=== PATIENT | female | born 1955 | race African-American/Black ===

== ENCOUNTER 2018-12-01 20:11 | Emergency (ER) | payer MEDICAID ==
[~2018-12-01] VITALS: Ht 170.2 cm; Wt 67.1 kg
--- NOTE | 2018-12-01 20:30 | NUR ---
ED Nurse Note: evaristo was LORY from [facility] due to SI. Stated that do not have any plans for that, she just do not want to live in that facility. AAO x4, VSS at this time, skin is dry warm to touch. Patient was undressed, placed in the gown.
--- NOTE | 2018-12-01 20:35 | NUR ---
ED Nurse Note: All belongings were placed in locker # 2.
[2018-12-01] MEDS ORDERED: LAMICTAL150 MG ORAL (20:38)
[2018-12-01] MEDS ORDERED: BISACODYL5 MG ORAL (20:38)
[2018-12-01] MEDS ORDERED: GABAPENTIN100 MG ORAL (20:38)
[2018-12-01] MEDS ORDERED: POTASSIUM CHLO20 ME2 ORAL (20:38)
[2018-12-01] MEDS ORDERED: ZYPREXA5 MG ORAL (20:38)
[2018-12-01] MEDS ORDERED: IMITREX50 MG ORAL (20:38)
[2018-12-01] MEDS ORDERED: LISINOPRIL20 MG ORAL (20:38)
[2018-12-01] MEDS ORDERED: FUROSEMIDE20 M1 ORAL (20:38)
[2018-12-01] MEDS ORDERED: METOPROLOL TART25 MG ORAL (20:38)
[2018-12-01] MEDS ORDERED: RISPERDAL0.5 MG ORAL (20:38)
[2018-12-01] MEDS ORDERED: PERCOCET 10-321 EACH ORAL (20:38)
[2018-12-01] MEDS ORDERED: PANTOPRAZOLE SO40 MG ORAL (20:38)
[2018-12-01 20:42] VITALS: BP 156/74
--- NOTE | 2018-12-01 20:45 | Emergency Room Report ---
History of Present Illness General Chief Complaint: General Complaint Source: EMS Present Illness HPI HPI: 63-year-old female with history of depression, schizoaffective disorder ( documented), hypertension and anxiety, GERD presents for evaluation of suicidal ideation. Patient states he has been residing at the [facility] for several years after some bowel altering surgery. She presents by ambulance today from the [facility] after she reported suicidality to staff. She does not have a definitive plan and states that she currently does not feel suicidal. She was feeling very depressed and states that she has plan for discharge from the [facility] and has no place to go. She considered moving with her son to [place] however she "feels it is too late." She has denying any attempts at self-harm, ingestion either now or prior. She has been feeling increased depression over the past few months including changes in sleep patterns, decreased appetite, fatigue/lethargy, subjective weight loss. She does not believe she has a formal diagnosis of depression but she does state that she has anxiety which she takes Ativan. Documentation from [facility] shows a diagnosis of schizo affective disorder and bipolar disorder. She has been refusing her medications over the past few days according to EMS. She is requesting to speak with a psychiatrist but again states that she is not actively suicidal, has no plan and has never attempted self-harm. Patient is otherwise in her usual state of health and denies any headache, vision changes, throat pain, difficulty swallowing, chest pain, shortness of breath, cough, abdominal pain, nausea, vomiting, diarrhea, fevers, rash or any other change in her health. PMH: Schizoaffective disorder (documented) and, depression, anxiety, GERD, hypertension PSH: U laparoscopy, bowel resection Allergies: Allergy to codeine Social Hx: Denies alcohol, tobacco or drug use Allergies: Coded Allergies: CODEINE (Verified Allergy, Unknown, 12/01/18) IBUPROFEN (Verified Allergy, Unknown, 12/01/18) Patient History Now: No Nursing Documentation-PMH Past Medical History: No History, Except For Hx Hypertension: Yes History Of Psychiatric Problem: Yes - depression, schizo-effective, anxiety, bipolar Review of Systems All Other Systems: negative except mentioned in HPI Physical Exam Vital Signs Date Time Temp Pulse Resp B/P (MAP) Pulse Ox O2 Delivery O2 Flow Rate FiO2 12/01/18 20:05 97.9 60 16 156/74 (101) 100 Room Air General: Awake and alert, no acute distress HEENT: NC/AT. EOMI. PERRLA. Moist mucous membranes Neck: Supple, trachea midline Chest Wall: No tenderness, no deformity Cardiovascular: RRR. S1 and S2 normal. No murmur appreciated Resp: Normal work of breathing. No cough, wheezing or crackles appreciated Abdomen: Abdomen is soft, nondistended. Nontender Skin: Intact. No abrasions, laceration or rash over the exposed skin MSK: Normal tone and bulk. Moving all extremities. No obvious deformity. Neuro: Awake and alert. Mentating appropriately. Cooperative with exam. Oriented to self, place, situation. Medical Decision Making Diagnostic Impression: Primary Impression: Suicidal ideation Additional Impression: Anorexia ER Course 63-year-old female with history of anxiety, bipolar disorder, schizoaffective disorder presents for evaluation of suicidal ideation, depression, requesting to speak with a psychiatrist as well as changes in sleep pattern, weight loss, decreased appetite. She adamantly denies any current plan or thoughts of suicide but does admit to having suicidal thoughts over the past few days as well as worsening depression for a longer period of time. Again, she denies self-harm today or in the past. We will check basic labs and discuss with PMD regarding admission. Unfortunately, we cannot provide a psychiatrist at this time of night. Should either be admitted or held in the emergency department to the morning for psychiatric evaluation. Reevaluation Time: 21:57 Last Vital Signs Date Time Temp Pulse Resp B/P (MAP) Pulse Ox O2 Delivery O2 Flow Rate FiO2 12/01/18 20:05 97.9 60 16 156/74 (101) 100 Room Air Reevaluation Impression Discussed with the patient's PMD who is recommending admission. Will admit to the floor and order routine blood work. She is in no acute distress, comfortable, calm and cooperative at this time. Patient is awaiting lab results after which we will discuss with [facility]. They are considering transferring to 1 of their facility or sending a psychiatrist to evaluate the patient. Signed out to Dr. Doyle at 2308 in stable condition Please note that this report is being documented using [employer] technology. This can lead to erroneous entry secondary to incorrect interpretation by the dictating instrument. Admit Decision Time: 21:58 Condition: Stable Signed Out To: Mario Sanders MD Dec 01, 2018 20:45
[2018-12-01 22:50] VITALS: BP 150/75
[2018-12-01] MEDS ORDERED: LORazepam Inj 2mg/ml 1ml IV PRN (23:00)
[2018-12-01] MEDS ORDERED: Zolpidem 5mg tab ORAL PRN (23:00)
[2018-12-01] MEDS ORDERED: Miralax 17gm pkt ORAL PRN (23:00)
[2018-12-01 23:13] LABS: HEMATOCRIT 36.5 % (37.0-47.0); HEMOGLOBIN 11.9 G/DL (12.0-16.0); MEAN CORPUSCULAR VOLUME 95 FL (80-99); PLATELET COUNT 262 K/UL (150-450); RED BLOOD COUNT 3.85 M/UL (4.20-5.40); RED CELL DISTRIBUTION WIDTH 12.8 % (11.6-14.8)
[2018-12-01 23:19] LABS: ANION GAP 5 mmol/L (5-15); BLOOD UREA NITROGEN 20 mg/dL (7-18); CALCIUM 9.8 MG/DL (8.5-10.1); CARBON DIOXIDE 29 MMOL/L (21-32); CHLORIDE 105 MMOL/L (98-107); CREATININE 0.9 MG/DL (0.55-1.30); POTASSIUM 4.4 MMOL/L (3.5-5.1); SODIUM 139 MMOL/L (136-145)
[2018-12-01 23:24] LABS: ALANINE AMINOTRANSFERASE 8 U/L (12-78); ALBUMIN 4.1 G/DL (3.4-5.0); ALKALINE PHOSPHATASE 41 U/L (46-116); ASPARTATE AMINO TRANSFERASE 23 U/L (15-37); BILIRUBIN,TOTAL 0.5 MG/DL (0.2-1.0)
[2018-12-02 00:50] VITALS: BP 155/74
--- NOTE | 2018-12-02 03:00 | NUR ---
ED Nurse Note: Pt asleep when visited, VSS.
[2018-12-02 03:02] VITALS: BP 144/72
[2018-12-02] MEDS ORDERED: LORazepam 1mg tab ORAL ONE (03:45)
--- NOTE | 2018-12-02 03:56 | NUR ---
ED Nurse Note: Patient is in the bed, cooperative, AAO x4, VSS at this time, no acute disstress noticed.
[2018-12-02 05:02] VITALS: BP 137/70
--- NOTE | 2018-12-02 05:05 | NUR ---
ED Nurse Note: Spoke with Margaret at [facility] - there are no plans/orders to discharge her from the ECF. Pt had earlier told us that she was going to be discharged, and has "no where to go". Margaret also states that Ms. Hart's bed will remain open for five days.
--- NOTE | 2018-12-02 07:19 | NUR ---
HAND-OFF: Report given to DOREEN Higgins.
--- NOTE | 2018-12-02 08:05 | NUR ---
ED Nurse Note: recieved pt on bed, pt stated that she had a suicidal thought but has no plan on hurting herself. pt was given breakfast and was able to tolerate. pt has no complaint, sitter on bedside. will continue to monitor.
[2018-12-02 08:08] VITALS: BP 130/70
[2018-12-02] MEDS ORDERED: Lisinopril 10mg tab ORAL ONE (08:15)
--- NOTE | 2018-12-02 08:21 | NUR ---
ED Nurse Note: pt was given routine medication ordered by accepting with approval from dr pastrana. pt able to tolerate well. will continue to monitor.
[2018-12-02] MEDS ORDERED: LaMICtal 150mg tab ORAL SCH (09:00)
[2018-12-02] MEDS ORDERED: Metoprolol 25mg tab ORAL SCH (09:00)
--- NOTE | 2018-12-02 09:04 | NUR ---
ED Nurse Note: pt asleep, with unlabored respiration. no complaint at the moment. sitter on bedside. will continue to monitor.
--- NOTE | 2018-12-02 09:06 | NUR ---
ED Nurse Note: previous rn gave number of pt son [phone] Vitor, attempted to call but to no avail.
--- NOTE | 2018-12-02 12:30 | NUR ---
ED Nurse Note: Dr. Mcclure at bedside and cleared patient at this time and ok to discharge patient back to SNF.
--- NOTE | 2018-12-02 12:54 | NUR ---
ED Nurse Note: RN spoke to Radha, charge nurse at [facility] and ok to take patient back at this time.
--- NOTE | 2018-12-02 13:10 | NUR ---
ED Nurse Note: dr armstrong on bedside talking with pt regarding the plan of care, pt denies si, denies plan. pt able to verbalize understanding.
[2018-12-02 13:34] VITALS: BP 118/76
--- NOTE | 2018-12-02 13:34 | NUR ---
ER DISCHARGE NOTE: pt is cleared for discharge by dr armstrong, pt is going back to facility and report given to alexy fowler., pt is aox4, on room air, with stable vital signs. pt was given dc and prescription instructions, pt was able to verbalize understanding, pt id band and iv site removed without complications. pt is able to ambulate with steady gait. pt took all belongings.
--- NOTE | 2018-12-03 00:15 | Consultation ---
DATE OF CONSULTATION: 12/02/2018 CONSULTING PHYSICIAN: Nayely Mcclure M.D. HISTORY OF PRESENT ILLNESS: This is a 63-year-old female, who is admitted to the hospital due to suicidal ideation. The patient presented with depressed mood, anhedonia, worthlessness, hopelessness. The patient is reluctant to take psychotropic medication. She stated that she recently lost her and her mother. She feels lonely than before. The patient was not suicidal in the ER. Stated that she feels better. PAST PSYCHIATRIC HISTORY: Depression, anxiety. PAST MEDICAL HISTORY: Hypertension, hyperlipidemia. MENTAL STATUS EXAMINATION: The patient is alert, oriented times self, place, and situation. Mood is depressed. Affect is constricted. Thought process is linear and goal oriented. Thought content, no suicidal or homicidal ideation. ASSESSMENT: [place] I Major depressive disorder, recurrent moderate. [place] I Deferred. [place] I As above. [place] I Low. [place] I 50. PLAN: 1. The patient will be resumed antidepressant. 2. Encourage her to take her psychotropic medications. 3. She will be referred to psychiatrist. Nayely Mcclure M.D. DR: FOREST JOB#: [id number] CC:
== END 2018-12-02 13:34 ==
LOC: EDBD 20:11 → EMR 21:17
DX: R45.851 Suicidal ideations (principal); R63.0 Anorexia; F25.9 Schizoaffective disorder, unspecified; F32.9 Major depressive disorder, single episode, unspecified; F41.9 Anxiety disorder, unspecified; Z88.6 Allergy status to analgesic agent; Z88.5 Allergy status to narcotic agent
CPT/HCPCS: 36415; 80053; 80307; 80329; 85007; 85025; 96360; 99285

== ENCOUNTER 2019-09-21 21:14 | Inpatient (IN) | payer MEDICAID ==
[~2019-09-21] VITALS: Ht 165.1 cm; Wt 72.6 kg
[~2019-09-21 21:14] MED LIST: BISACODYL5 MG ORAL; FUROSEMIDE20 M1 ORAL; GABAPENTIN100 MG ORAL; IMITREX50 MG ORAL; LAMICTAL150 MG ORAL; LISINOPRIL20 MG ORAL; METOPROLOL TART25 MG ORAL; PANTOPRAZOLE SO40 MG ORAL; PERCOCET 10-321 EACH ORAL; POTASSIUM CHLO20 ME2 ORAL; RISPERDAL0.5 MG ORAL; ZYPREXA5 MG ORAL
[2019-09-21] MEDS ORDERED: Acetaminophen 650 MG SUPP RECTAL ONE (21:45)
[2019-09-21] MEDS ORDERED: TRAMADOL HCL100 M2 ORAL (21:46)
[2019-09-21] MEDS ORDERED: MYLANTA30 M1 GT (21:46)
[2019-09-21] MEDS ORDERED: SENOKOT8.6 MG PO (21:46)
[2019-09-21] MEDS ORDERED: ZENPEP DR 5,001 EAC1 PO (21:46)
[2019-09-21] MEDS ORDERED: TEMAZEPAM22.5 MG PO (21:46)
[2019-09-21] MEDS ORDERED: CULTURELLE1 EAC1 PO (21:46)
[2019-09-21] MEDS ORDERED: DIPHENHYDRAMINE25 M1 ORAL (21:46)
[2019-09-21] MEDS ORDERED: FLOMAX0.4 MG ORAL (21:46)
[2019-09-21] MEDS ORDERED: LACTULOSE10 GM/154 PO (21:46)
[2019-09-21] MEDS ORDERED: RIFAXIMIN500 GM MC (21:46)
[2019-09-21] MEDS ORDERED: HYDROMORPHO IJ (21:46)
[2019-09-21] MEDS ORDERED: REGLAN10 MG ORAL (21:46)
[2019-09-21] MEDS ORDERED: ACETAMINOPHEN325 M1 ORAL (21:46)
[2019-09-21] MEDS ORDERED: CEPHALEXIN500 MG ORAL (21:46)
[2019-09-21] MEDS ORDERED: SPIRONOLACTONE1 GM MC (21:46)
[2019-09-21] MEDS ORDERED: ZOFRAN4 M1 ORAL (21:46)
--- NOTE | 2019-09-21 22:00 | Emergency Room Report ---
History of Present Illness General Chief Complaint: Fever Source: Patient, Medical Record (Chuckie Doyle MD) Present Illness HPI 64-year-old female presents for fever. Brought in by EMS from [facility] facility. Febrile at facility. Given Tylenol. Reported cough. Productive. States she feels shaky and weak. Denies chest pain or shortness of breath. No other aggravating relieving factors. No other associated symptoms (Chuckie Doyle MD) Allergies: Coded Allergies: CODEINE (Verified Allergy, Unknown, 12/01/18) IBUPROFEN (Verified Allergy, Unknown, 12/01/18) COVID-19 Screening Contact w/high risk pt: Yes Recent Travel to affected area: No Experienced COVID-19 symptoms?: Yes COVID-19 symptoms experienced: Fever (T>100.4F or >38C), Cough COVID-19 Testing performed SURVEY AND MAPPING TECHNICIAN: No (Chuckie Doyle MD) Patient History Past Medical History: HTN, psych hx Pertinent Family History: none Social History: Denies: smoking, alcohol use, drug use Last Menstrual Period: na Now: No Immunizations: UTD Reviewed Nursing Documentation: PMH: Agreed; PSxH: Agreed (Chuckie Doyle MD) Nursing Documentation-PMH Hx Hypertension: Yes Hx Gastrointestinal Problems: Yes - obstruction Hx Dialysis: No - Akf History Of Psychiatric Problem: Yes - modd disorder; paranoid schiz (Chuckie Doyle MD) Review of Systems All Other Systems: negative except mentioned in HPI (Chuckie Doyle MD) Physical Exam Vital Signs Date Time Temp Pulse Resp B/P (MAP) Pulse Ox O2 Delivery O2 Flow Rate FiO2 09/20/20 21:18 103.3 104 24 135/80 (98) 96 Room Air Sp02 EP Interpretation: reviewed, normal General Appearance: no apparent distress, alert, GCS 15, non-toxic Head: normocephalic, atraumatic Eyes: bilateral eye normal inspection, bilateral eye PERRL ENT: hearing grossly normal, normal pharynx, no angioedema, normal voice Neck: full range of motion, supple/symm/no masses Respiratory: chest non-tender, crackles, speaking full sentences Cardiovascular #1: regular rate, rhythm, no edema Cardiovascular #2: 2+ carotid (R), 2+ carotid (L), 2+ radial (R), 2+ radial (L) , 2+ dorsalis pedis (R), 2+ dorsalis pedis (L) Gastrointestinal: normal bowel sounds, non tender, soft, non-distended, no guarding, no rebound Rectal: deferred Genitourinary: normal inspection, no CVA tenderness Musculoskeletal: back normal, normal range of motion, gait/station normal, non- tender Neurologic: alert, motor strength/tone normal, oriented x3, sensory intact, responsive, speech normal Psychiatric: judgement/insight normal, memory normal, mood/affect normal, no suicidal/homicidal ideation Reflexes: 3+ bicep (R), 3+ bicep (L), 3+ tricep (R), 3+ tricep (L), 3+ knee (R) , 3+ knee (L) Skin: other - see nursing skin notes Lymphatic: no adenopathy (Chuckie Doyle MD) Medical Decision Making Diagnostic Impression: Primary Impression: RLL pneumonia Qualified Codes: J18.9 - Pneumonia, unspecified organism ER Course See above note. RLL infiltrate. Antibiotics started. 2229 Discussed with [facility] who request admission here. Discussed with Dr. Vicente who accepts admission. 2253 Labs remarkable for normal white count but left shift. Elevated C-reactive protein. D-dimer is minimally elevated however not to the point of concern for starting anticoagulation at this time. COVID-19 testing pending. As patient comes from a [facility] facility suspicion for COVID-19 is moderate to high. (Alfredo De La Fuente MD) EKG Diagnostic Results Rate: tachycardiac Rhythm: NSR ST Segments: no acute changes ASA given to the pt in ED: No (Chuckie Doyle MD) Rate: tachycardiac Rhythm: NSR ST Segments: no acute changes (Alfredo De La Fuente MD) Rhythm Strip Diag. Results EP Interpretation: yes Rhythm: NSR, no PVC's, no ectopy (Chuckie Doyle MD) EP Interpretation: yes Rhythm: no PVC's, no ectopy, other - ST (Alfredo De La Fuente MD) Chest X-Ray Diagnostic Results Chest X-Ray Diagnostic Results : Chest X-Ray Ordered: Yes # of Views/Limited/Complete: 1 View Indication: Shortness of Breath EP Interpretation: Yes Interpretation: no effusion, no pneumothorax, other - RLL infiltrate Impression: Other Electronically Signed by: Electronically signed by Alfredo De La Fuente MD (Alfredo De La Fuente MD) Last Vital Signs Date Time Temp Pulse Resp B/P (MAP) Pulse Ox O2 Delivery O2 Flow Rate FiO2 09/21/19 21:18 103.3 104 24 135/80 (98) 96 Room Air (Chuckie Doyle MD) Last Vital Signs Date Time Temp Pulse Resp B/P (MAP) Pulse Ox O2 Delivery O2 Flow Rate FiO2 09/22/19 02:06 Room Air 09/22/19 01:35 102.2 100 24 135/80 96 Status: improved (Alfredo De La Fuente MD) Disposition: ADMITTED INPATIENT Condition: Serious Referrals: Juvenal Israel DO (PCP) Chuckie Doyle MD September 21, 2019 22:00 Alfredo De La Fuente MD September 21, 2019 22:31
[2019-09-21 22:15] LABS: HEMATOCRIT 36.7 % (37.0-47.0); HEMOGLOBIN 11.6 G/DL (12.0-16.0); MEAN CORPUSCULAR VOLUME 97 FL (80-99); PLATELET COUNT 169 K/UL (150-450); RED BLOOD COUNT 3.79 M/UL (4.20-5.40); RED CELL DISTRIBUTION WIDTH 13.2 % (11.6-14.8); WHITE BLOOD COUNT 7.5 K/UL (4.8-10.8)
[2019-09-21] MEDS ORDERED: Acetaminophen 500mg (ES) tab ORAL ONE (22:15)
[2019-09-21 22:16] LABS: BASOPHILS % (AUTO) 0.5 % (0.0-2.0); LYMPHOCYTES % (AUTO) 5.9 % (20.0-45.0); MONOCYTES % (AUTO) 6.3 % (1.0-10.0); NEUTROPHILS % (AUTO) 87.2 % (45.0-75.0)
[2019-09-21 22:27] VITALS: BP 135/80
[2019-09-21 22:28] LABS: ANION GAP 10 mmol/L (5-15); BLOOD UREA NITROGEN 16 mg/dL (7-18); CALCIUM 8.8 MG/DL (8.5-10.1); CARBON DIOXIDE 29 MMOL/L (21-32); CHLORIDE 101 MMOL/L (98-107); CREATININE 1.1 MG/DL (0.55-1.30); POTASSIUM 3.6 MMOL/L (3.5-5.1); SODIUM 140 MMOL/L (136-145)
[2019-09-21] MEDS ORDERED: cefTRIAXone 1 GM in NS 55 ML IVPB ONE (22:30)
[2019-09-21] MEDS ORDERED: Azithromycin 500 MG in D5W 275 ML IVPB ONE (22:30)
[2019-09-21 22:33] LABS: ALANINE AMINOTRANSFERASE 27 U/L (12-78); ALBUMIN 3.8 G/DL (3.4-5.0); ALBUMIN/GLOBULIN RATIO 0.9 (1.0-2.7); ALKALINE PHOSPHATASE 39 U/L (46-116); ASPARTATE AMINO TRANSFERASE 29 U/L (15-37); BILIRUBIN,TOTAL 0.7 MG/DL (0.2-1.0)
[2019-09-22] VITALS (7 sets, daily range): BP systolic 104–164; BP diastolic 54–83
[2019-09-22 01:17] LABS: APPEARANCE,URINE CLEAR; BILIRUBIN, URINE NEGATIVE (NEGATIVE); GLUCOSE, URINE (UA) NEGATIVE (NEGATIVE); KETONES,URINE 1+ (NEGATIVE); LEUKOCYTE ESTERASE ,URINE 3+ (NEGATIVE); NITRITE,URINE NEGATIVE (NEGATIVE); PH,URINE 6 (4.5-8.0); PROTEIN,URINE 2+ (NEGATIVE); UROBILINOGEN,URINE 4 MG/DL (0.0-1.0)
[2019-09-22 02:47] LABS: COLOR,URINE YELLOW
[2019-09-22] MEDS ORDERED: Guaifenesin/DM 10ml syrup ORAL PRN (04:00)
[2019-09-22] MEDS ORDERED: Sennosides 8.6mg tab ORAL PRN (04:00)
[2019-09-22] MEDS ORDERED: METOPROLOL TART50 M1 ORAL (05:04)
[2019-09-22] MEDS ORDERED: LAMOTRIGINE150 MG PO (05:04)
[2019-09-22] MEDS ORDERED: ROBITUSSIN COU118 M1 ORAL (05:04)
[2019-09-22] MEDS ORDERED: ASPIRIN81 M3 PO (05:04)
[2019-09-22] MEDS ORDERED: LAMICTAL100 MG ORAL (05:04)
[2019-09-22] MEDS ORDERED: NEURONTIN300 MG ORAL (05:04)
[2019-09-22] MEDS ORDERED: OLANZAPINE10 MG ORAL (05:04)
[2019-09-22] MEDS ORDERED: FUROSEMIDE20 M1 ORAL (05:04)
[2019-09-22] MEDS ORDERED: TYLENOL EXTRA500 MG ORAL (05:08)
[2019-09-22 07:57] LABS: BASOPHILS % (AUTO) 0.2 % (0.0-2.0); HEMATOCRIT 35.7 % (37.0-47.0); HEMOGLOBIN 12.2 G/DL (12.0-16.0); LYMPHOCYTES % (AUTO) 11.6 % (20.0-45.0); MEAN CORPUSCULAR VOLUME 90 FL (80-99); MONOCYTES % (AUTO) 8.4 % (1.0-10.0); NEUTROPHILS % (AUTO) 79.8 % (45.0-75.0); PLATELET COUNT 163 K/UL (150-450); RED BLOOD COUNT 3.98 M/UL (4.20-5.40); RED CELL DISTRIBUTION WIDTH 11.8 % (11.6-14.8); WHITE BLOOD COUNT 7.8 K/UL (4.8-10.8)
[2019-09-22] MEDS ORDERED: Acetaminophen 500mg (ES) tab ORAL PRN (08:00)
[2019-09-22 08:09] LABS: ALANINE AMINOTRANSFERASE 25 U/L (12-78); ALBUMIN 3.4 G/DL (3.4-5.0); ALBUMIN/GLOBULIN RATIO 0.8 (1.0-2.7); ALKALINE PHOSPHATASE 25 U/L (46-116); ANION GAP 11 mmol/L (5-15); ASPARTATE AMINO TRANSFERASE 29 U/L (15-37); BILIRUBIN,TOTAL 0.7 MG/DL (0.2-1.0); BLOOD UREA NITROGEN 14 mg/dL (7-18); CALCIUM 8.7 MG/DL (8.5-10.1); CARBON DIOXIDE 28 MMOL/L (21-32); CHLORIDE 102 MMOL/L (98-107); CREATININE 0.8 MG/DL (0.55-1.30); PHOSPHORUS 2.7 MG/DL (2.5-4.9); POTASSIUM 3.3 MMOL/L (3.5-5.1); SODIUM 141 MMOL/L (136-145)
[2019-09-22] MEDS ORDERED: OLANZapine 10mg tab ORAL SCH ×2 (09:00)
[2019-09-22] MEDS ORDERED: Metoprolol Tartrate 50mg tab ORAL SCH (09:00)
[2019-09-22] MEDS ORDERED: Spironolactone 25mg tab ORAL SCH (09:00)
--- NOTE | 2019-09-22 09:04 | Diagnostic Imaging Report ---
Procedure: XRAY Chest 1v Reason for study: Reason For Exam: COUGH Comparison films: None. FINDINGS: A single one view chest is obtained. There is slight vascular prominence. Bilateral mild interstitial densities noted. Question early edema. There is cardiomegaly with tortuous aorta. There may be a small right effusion. The bony thorax appear unremarkable. IMPRESSION: Vascular and interstitial prominence perhaps early edema.
[2019-09-22] MEDS: Metoprolol Tartrate 50mg tab ORAL SCH ×2 (09:07→18:13)
[2019-09-22] MEDS: Guaifenesin/DM 10ml syrup ORAL PRN (09:10)
[2019-09-22] MEDS: Enoxaparin 40mg Inj SUBQ SCH (09:12)
--- NOTE | 2019-09-22 12:05 | Consultation ---
History of Present Illness General Date patient seen: September 22, 2019 Chief Complaint: Fever Present Illness HPI 64-year-old female with hx of schizophrenia, HTN, [facility] resident presented to ER evaluation of fever and productive cough. She was given Tylenol. States she feels shaky and weak. Denies chest pain or shortness of breath. No other aggravating relieving factors. No other associated symptoms Allergies: Coded Allergies: CODEINE (Verified Allergy, Unknown, 12/01/18) IBUPROFEN (Verified Allergy, Unknown, 12/01/18) Medication History Scheduled Aspirin (Aspirin), 81 MG PO DAILY, (Reported) Furosemide* (Lasix*), 20 MG ORAL DAILY, (Reported) Gabapentin (Neurontin), 300 MG ORAL THREE TIMES A DAY, (Reported) Lamotrigine (Lamotrigine), 150 MG PO BEDTIME, (Reported) Lamotrigine* (Lamictal*), 100 MG ORAL DAILY, (Reported) Metoprolol Tartrate* (Metoprolol Tartrate*), 50 MG ORAL BID, (Reported) Olanzapine (Olanzapine), 10 MG ORAL BID, (Reported) Scheduled PRN Acetaminophen* (Tylenol Extra Strength*), 500 MG ORAL Q8H PRN for For Pain, ( Reported) Guaifenesin/D-Methorphan Hb/Pe (Robitussin Cough-Cold Cf Liq*), 15 ML ORAL Q6HR PRN for FOR COUGH, (Reported) Discontinued Medications Acetaminophen* (Acetaminophen 325MG Tablet*), 650 MG ORAL Q4H PRN for mild pain, (Reported) Discontinued Reason: MD discontinued med Al Hydroxide/mg Hydroxide (Mag-Al Liquid), 30 ML GT, (Reported) Discontinued Reason: MD discontinued med Bisacodyl* (Dulcolax*), 10 MG ORAL DAILY, (Reported) Discontinued Reason: MD discontinued med Cephalexin* (Keflex*), 500 MG ORAL EVERY 12 HOURS, (Reported) Discontinued Reason: MD discontinued med Diphenhydramine Hcl* (Diphenhydramine Hcl*), 25 MG ORAL Q6H PRN for Itching, ( Reported) Discontinued Reason: MD discontinued med Furosemide* (Lasix*), 20 MG ORAL DAILY, (Reported) Discontinued Reason: MD discontinued med Gabapentin* (Gabapentin*), 100 MG ORAL THREE TIMES A DAY, (Reported) Discontinued Reason: MD discontinued med Hydromorphone HCl in Water/Pf (Hydromorphone 2 mg/2 ml-Water), 2 MG IJ, ( Reported) Discontinued Reason: MD discontinued med Lactobacillus Rhamnosus Gg (Culturelle), 1 EACH PO, (Reported) Discontinued Reason: MD discontinued med Lactulose (Lactulose), 20 GM PO, (Reported) Discontinued Reason: MD discontinued med Lamotrigine* (Lamictal*), 150 MG ORAL TWICE A DAY, (Reported) Discontinued Reason: MD discontinued med Lipase/Protease/Amylase (Zenpep Dr 5,000 Unit Capsule), 1 EACH PO, (Reported) Discontinued Reason: MD discontinued med Lisinopril (Lisinopril*), 20 MG ORAL DAILY, (Reported) Discontinued Reason: MD discontinued med Metoclopramide Hcl* (Reglan*), 10 MG ORAL THREE TIMES A DAY, (Reported) Discontinued Reason: MD discontinued med Metoprolol Tartrate* (Metoprolol Tartrate*), 25 MG ORAL EVERY 12 HOURS, ( Reported) Discontinued Reason: MD discontinued med Olanzapine* (Zyprexa*), 5 MG ORAL DAILY, (Reported) Discontinued Reason: Medication dose changed Ondansetron (Zofran), 4 MG ORAL Q6H PRN for Nausea & Vomiting, (Reported) Discontinued Reason: MD discontinued med Oxycodone Hcl/Acetaminophen 10-325 Mg Tablet (Percocet 10-325 Mg Tablet*), 1 TAB ORAL Q6H PRN for For Pain, (Reported) Discontinued Reason: MD discontinued med Pantoprazole* (Pantoprazole*), 40 MG ORAL DAILY, (Reported) Discontinued Reason: MD discontinued med Potassium Chloride (Potassium Chloride), 20 MEQ ORAL DAILY, (Reported) Discontinued Reason: MD discontinued med Rifaximin (Rifaximin), 550 GM MC, (Reported) Discontinued Reason: MD discontinued med Risperidone* (Risperdal*), 0.5 MG ORAL DAILY, (Reported) Discontinued Reason: MD discontinued med Sennosides (Senokot), 8.6 MG PO, (Reported) Discontinued Reason: Pt stopped taking med Spironolactone, Micronized (Spironolactone), 25 MG MC, (Reported) Discontinued Reason: Pt stopped taking med Sumatriptan Succinate* (Imitrex*), 50 MG ORAL DAILY PRN MIGRAINE, (Reported) Discontinued Reason: Pt stopped taking med Tamsulosin HCl (Flomax), 0.4 MG ORAL DAILY, (Reported) Discontinued Reason: Pt stopped taking med Temazepam (Temazepam), 7.5 MG PO, (Reported) Discontinued Reason: Pt stopped taking med Tramadol Hcl (Tramadol Hcl), 50 MG ORAL DAILY, (Reported) Discontinued Reason: MD discontinued med Patient History Healthcare decision maker Resuscitation status Advanced Directive on File Past Medical/Surgical History Past Medical/Surgical History: (1) Hypertension (2) Paranoid schizophrenia (3) [facility] resident Review of Systems All Other Systems: negative except mentioned in HPI Physical Exam General Appearance: WD/WN Lines, tubes and drains: peripheral HEENT: normocephalic, atraumatic Neck: non-tender, normal alignment Respiratory/Chest: chest wall non-tender, lungs clear Breasts: no masses Cardiovascular/Chest: normal peripheral pulses Abdomen: normal bowel sounds, non tender Genitourinary/Rectal: normal genital exam, normal rectal exam Extremities: normal range of motion Skin Exam: normal pigmentation Last 24 Hour Vital Signs Date Time Temp Pulse Resp B/P (MAP) Pulse Ox O2 Delivery O2 Flow Rate FiO2 09/22/19 09:07 102 153/82 09/22/19 08:00 102.9 102 19 153/82 (105) 95 09/22/19 04:00 102.0 86 20 156/76 (102) 95 09/22/19 02:06 Room Air 09/22/19 01:35 102.2 100 24 135/80 96 Room Air 09/22/19 00:00 102.2 100 24 135/80 96 Room Air 09/21/19 22:52 102.2 09/21/19 22:27 104 24 Room Air 09/21/19 22:27 103.3 100 24 135/80 96 Room Air 09/21/19 21:18 103.3 104 24 135/80 (98) 96 Room Air Intake and Output 09/21/19 09/22/19 19:00 07:00 # Voids 1 Laboratory Tests Test 09/21/19 21:53 09/22/19 00:10 09/22/19 07:30 White Blood Count 7.5 K/UL (4.8-10.8) 7.8 K/UL (4.8-10.8) Red Blood Count 3.79 M/UL (4.20-5.40) L 3.98 M/UL (4.20-5.40) L Hemoglobin 11.6 G/DL (12.0-16.0) L 12.2 G/DL (12.0-16.0) Hematocrit 36.7 % (37.0-47.0) L 35.7 % (37.0-47.0) L Mean Corpuscular Volume 97 FL (80-99) 90 FL (80-99) Mean Corpuscular Hemoglobin 30.5 PG (27.0-31.0) 30.7 PG (27.0-31.0) Mean Corpuscular Hemoglobin Concent 31.6 G/DL (32.0-36.0) L 34.2 G/DL (32.0-36.0) Red Cell Distribution Width 13.2 % (11.6-14.8) 11.8 % (11.6-14.8) Platelet Count 169 K/UL (150-450) 163 K/UL (150-450) Mean Platelet Volume 7.0 FL (6.5-10.1) 5.2 FL (6.5-10.1) L Neutrophils (%) (Auto) 87.2 % (45.0-75.0) H 79.8 % (45.0-75.0) H Lymphocytes (%) (Auto) 5.9 % (20.0-45.0) L 11.6 % (20.0-45.0) L Monocytes (%) (Auto) 6.3 % (1.0-10.0) 8.4 % (1.0-10.0) Eosinophils (%) (Auto) 0.0 % (0.0-3.0) 0.0 % (0.0-3.0) Basophils (%) (Auto) 0.5 % (0.0-2.0) 0.2 % (0.0-2.0) D-Dimer 0.79 mg/L FEU (0.00-0.49) H Sodium Level 140 MMOL/L (136-145) 141 MMOL/L (136-145) Potassium Level 3.6 MMOL/L (3.5-5.1) 3.3 MMOL/L (3.5-5.1) L Chloride Level 101 MMOL/L (98-107) 102 MMOL/L (98-107) Carbon Dioxide Level 29 MMOL/L (21-32) 28 MMOL/L (21-32) Anion Gap 10 mmol/L (5-15) 11 mmol/L (5-15) Blood Urea Nitrogen 16 mg/dL (7-18) 14 mg/dL (7-18) Creatinine 1.1 MG/DL (0.55-1.30) 0.8 MG/DL (0.55-1.30) Estimat Glomerular Filtration Rate > 60 mL/min (>60) > 60 mL/min (>60) Glucose Level 142 MG/DL (74-106) H 114 MG/DL (74-106) H Lactic Acid Level 1.50 mmol/L (0.4-2.0) Calcium Level 8.8 MG/DL (8.5-10.1) 8.7 MG/DL (8.5-10.1) Ferritin 147 NG/ML (8-388) Total Bilirubin 0.7 MG/DL (0.2-1.0) 0.7 MG/DL (0.2-1.0) Aspartate Amino Transf (AST/SGOT) 29 U/L (15-37) 29 U/L (15-37) Alanine Aminotransferase (ALT/SGPT) 27 U/L (12-78) 25 U/L (12-78) Alkaline Phosphatase 39 U/L (46-116) L 25 U/L (46-116) L Lactate Dehydrogenase 299 U/L (81-234) H C-Reactive Protein, Quantitative 17.8 mg/dL (0.00-0.90) H Total Protein 8.2 G/DL (6.4-8.2) 7.5 G/DL (6.4-8.2) Albumin 3.8 G/DL (3.4-5.0) 3.4 G/DL (3.4-5.0) Globulin 4.4 g/dL 4.1 g/dL Albumin/Globulin Ratio 0.9 (1.0-2.7) L 0.8 (1.0-2.7) L Urine Color Yellow Urine Appearance Clear Urine pH 6 (4.5-8.0) Urine Specific [place] 1.015 (1.005-1.035) Urine Protein 2+ (NEGATIVE) H Urine Glucose (UA) Negative (NEGATIVE) Urine Ketones 1+ (NEGATIVE) H Urine Blood 3+ (NEGATIVE) H Urine Nitrite Negative (NEGATIVE) Urine Bilirubin Negative (NEGATIVE) Urine Urobilinogen 4 MG/DL (0.0-1.0) H Urine Leukocyte Esterase 3+ (NEGATIVE) H Urine RBC 2-4 /HPF (0 - 2) H Urine WBC 10-15 /HPF (0 - 2) H Urine Squamous Epithelial Cells Few /LPF (NONE/OCC) Urine Bacteria Few /HPF (NONE) Phosphorus Level 2.7 MG/DL (2.5-4.9) Magnesium Level 2.0 MG/DL (1.8-2.4) Troponin I 0.038 ng/mL (0.000-0.056) Calcitonin Level Pending Microbiology Date/Time Source Procedure Growth Status 09/22/19 00:55 Rectum Received Height (Feet): 5 Height (Inches): 5.00 Weight (Pounds): 160 Medications Current Medications Medications (Trade) Dose Ordered Sig/Shazia Route PRN Reason Start Time Stop Time Status Last Admin Dose Admin Acetaminophen (Tylenol) 650 mg Q6H PRN ORAL Mild Pain (Pain Scale 1-3) 09/22/19 10:30 10/22/19 10:29 Acetaminophen (Tylenol) 650 mg Q6H PRN ORAL Temp >100.5 09/22/19 10:30 10/22/19 10:29 Aspirin (ASA) 81 mg DAILY ORAL 09/23/19 09:00 11/07/19 08:59 Azithromycin (Zithromax) 250 mg Q24H ORAL 09/22/19 21:00 09/26/19 21:01 Ceftriaxone Sodium 1 gm/ Dextrose 55 ml @ 110 mls/hr Q24H IVPB 09/22/19 22:00 09/29/19 21:59 Enoxaparin Sodium (Lovenox) 40 mg DAILY SUBQ 09/22/19 09:00 12/21/19 08:59 09/22/19 09:12 Furosemide (Lasix) 20 mg DAILY ORAL 09/22/19 09:00 10/22/19 08:59 09/22/19 10:55 Gabapentin (Neurontin) 300 mg THREE TIMES A DAY ORAL 09/22/19 09:00 10/22/19 08:59 09/22/19 09:07 Guaifenesin/ Dextromethorphan (Robitussin DM Syrup) 15 ml Q6H PRN ORAL For Cough 09/22/19 08:00 12/21/19 07:59 09/22/19 09:10 Lamotrigine (LaMICtal) 100 mg DAILY ORAL 09/22/19 09:00 10/22/19 08:59 09/22/19 10:14 Lamotrigine (LaMICtal) 150 mg BEDTIME ORAL 09/22/19 21:00 10/22/19 20:59 Metoprolol Tartrate (Lopressor) 50 mg BID ORAL 09/22/19 09:00 12/21/19 08:59 09/22/19 09:07 Olanzapine (ZyPREXA) 10 mg BEDTIME ORAL 09/23/19 21:00 11/06/19 08:59 Ondansetron HCl (Zofran) 4 mg Q4H PRN IVP Nausea & Vomiting 09/22/19 10:30 10/22/19 10:29 Potassium Chloride (K-Dur) 40 meq ONCE ORAL 09/22/19 10:30 09/22/19 12:30 09/22/19 10:55 Assessment/Plan Problem List: (1) RLL pneumonia ICD Codes: J18.9 - Pneumonia, unspecified organism SNOMED: 883574757 Qualifiers: Qualified Codes: J18.9 - Pneumonia, unspecified organism (2) Fever ICD Codes: R50.9 - Fever, unspecified SNOMED: 196465011 (3) Pleural effusion ICD Codes: J90 - Pleural effusion, not elsewhere classified SNOMED: 34521270 (4) Suspected COVID-19 virus infection ICD Codes: Z20.828 - Contact with and (suspected) exposure to other viral communicable diseases SNOMED: 430646562 (5) Hypertension ICD Codes: I10 - Essential (primary) hypertension SNOMED: 48041203 (6) Paranoid schizophrenia ICD Codes: F20.0 - Paranoid schizophrenia SNOMED: 64010003 (7) [facility] resident ICD Codes: Z59.3 - Problems related to living in residential institution SNOMED: 286708374 Assessment/Plan: respiratory treatment check cultures iv abx ID evaluation US of chest to find out amount of pleural effusion monitor HTN. Echo to assess cardiac function, there might be a component of CHF Helene Olmedo MD September 22, 2019 12:05
--- NOTE | 2019-09-22 13:36 | Consultation ---
History of Present Illness General Date patient seen: September 22, 2019 Chief Complaint: Fever Present Illness HPI 64 y/o F with hx of schizophrenia, HTN, [place] resident presented to ED on 09/20 with fever, productive cough Denied chest pain, SOB Allergies: Coded Allergies: CODEINE (Verified Allergy, Unknown, 12/01/18) IBUPROFEN (Verified Allergy, Unknown, 12/01/18) Medication History Scheduled Aspirin (Aspirin), 81 MG PO DAILY, (Reported) Furosemide* (Lasix*), 20 MG ORAL DAILY, (Reported) Gabapentin (Neurontin), 300 MG ORAL THREE TIMES A DAY, (Reported) Lamotrigine (Lamotrigine), 150 MG PO BEDTIME, (Reported) Lamotrigine* (Lamictal*), 100 MG ORAL DAILY, (Reported) Metoprolol Tartrate* (Metoprolol Tartrate*), 50 MG ORAL BID, (Reported) Olanzapine (Olanzapine), 10 MG ORAL BID, (Reported) Scheduled PRN Acetaminophen* (Tylenol Extra Strength*), 500 MG ORAL Q8H PRN for For Pain, ( Reported) Guaifenesin/D-Methorphan Hb/Pe (Robitussin Cough-Cold Cf Liq*), 15 ML ORAL Q6HR PRN for FOR COUGH, (Reported) Discontinued Medications Acetaminophen* (Acetaminophen 325MG Tablet*), 650 MG ORAL Q4H PRN for mild pain, (Reported) Discontinued Reason: MD discontinued med Al Hydroxide/mg Hydroxide (Mag-Al Liquid), 30 ML GT, (Reported) Discontinued Reason: MD discontinued med Bisacodyl* (Dulcolax*), 10 MG ORAL DAILY, (Reported) Discontinued Reason: MD discontinued med Cephalexin* (Keflex*), 500 MG ORAL EVERY 12 HOURS, (Reported) Discontinued Reason: MD discontinued med Diphenhydramine Hcl* (Diphenhydramine Hcl*), 25 MG ORAL Q6H PRN for Itching, ( Reported) Discontinued Reason: MD discontinued med Furosemide* (Lasix*), 20 MG ORAL DAILY, (Reported) Discontinued Reason: MD discontinued med Gabapentin* (Gabapentin*), 100 MG ORAL THREE TIMES A DAY, (Reported) Discontinued Reason: MD discontinued med Hydromorphone HCl in Water/Pf (Hydromorphone 2 mg/2 ml-Water), 2 MG IJ, ( Reported) Discontinued Reason: MD discontinued med Lactobacillus Rhamnosus Gg (Culturelle), 1 EACH PO, (Reported) Discontinued Reason: MD discontinued med Lactulose (Lactulose), 20 GM PO, (Reported) Discontinued Reason: MD discontinued med Lamotrigine* (Lamictal*), 150 MG ORAL TWICE A DAY, (Reported) Discontinued Reason: MD discontinued med Lipase/Protease/Amylase (Zenpep Dr 5,000 Unit Capsule), 1 EACH PO, (Reported) Discontinued Reason: MD discontinued med Lisinopril (Lisinopril*), 20 MG ORAL DAILY, (Reported) Discontinued Reason: MD discontinued med Metoclopramide Hcl* (Reglan*), 10 MG ORAL THREE TIMES A DAY, (Reported) Discontinued Reason: MD discontinued med Metoprolol Tartrate* (Metoprolol Tartrate*), 25 MG ORAL EVERY 12 HOURS, ( Reported) Discontinued Reason: MD discontinued med Olanzapine* (Zyprexa*), 5 MG ORAL DAILY, (Reported) Discontinued Reason: Medication dose changed Ondansetron (Zofran), 4 MG ORAL Q6H PRN for Nausea & Vomiting, (Reported) Discontinued Reason: MD discontinued med Oxycodone Hcl/Acetaminophen 10-325 Mg Tablet (Percocet 10-325 Mg Tablet*), 1 TAB ORAL Q6H PRN for For Pain, (Reported) Discontinued Reason: MD discontinued med Pantoprazole* (Pantoprazole*), 40 MG ORAL DAILY, (Reported) Discontinued Reason: MD discontinued med Potassium Chloride (Potassium Chloride), 20 MEQ ORAL DAILY, (Reported) Discontinued Reason: MD discontinued med Rifaximin (Rifaximin), 550 GM MC, (Reported) Discontinued Reason: MD discontinued med Risperidone* (Risperdal*), 0.5 MG ORAL DAILY, (Reported) Discontinued Reason: MD discontinued med Sennosides (Senokot), 8.6 MG PO, (Reported) Discontinued Reason: Pt stopped taking med Spironolactone, Micronized (Spironolactone), 25 MG MC, (Reported) Discontinued Reason: Pt stopped taking med Sumatriptan Succinate* (Imitrex*), 50 MG ORAL DAILY PRN MIGRAINE, (Reported) Discontinued Reason: Pt stopped taking med Tamsulosin HCl (Flomax), 0.4 MG ORAL DAILY, (Reported) Discontinued Reason: Pt stopped taking med Temazepam (Temazepam), 7.5 MG PO, (Reported) Discontinued Reason: Pt stopped taking med Tramadol Hcl (Tramadol Hcl), 50 MG ORAL DAILY, (Reported) Discontinued Reason: discontinued med Patient History Healthcare decision maker Resuscitation status Advanced Directive on File Patient History Narrative Pmhx: as above Shx: Denies: smoking, alcohol use, drug use Fhx: non contributory Review of Systems All Other Systems: negative except mentioned in HPI Physical Exam Physical Exam Narrative General Appearance: WD/WN HEENT: normocephalic, atraumatic Neck: non-tender, normal alignment Respiratory/Chest: chest wall non-tender, lungs clear Cardiovascular/Chest: normal peripheral pulses Abdomen: normal bowel sounds, non tender Extremities: normal range of motion Skin Exam: normal pigmentation Last 24 Hour Vital Signs Date Time Temp Pulse Resp B/P (MAP) Pulse Ox O2 Delivery O2 Flow Rate FiO2 09/22/19 12:00 102.6 73 18 104/54 (71) 94 09/22/19 09:07 102 153/82 09/22/19 09:00 Room Air 09/22/19 08:00 102.9 102 19 153/82 (105) 95 09/22/19 04:00 102.0 86 20 156/76 (102) 95 09/22/19 02:06 Room Air 09/22/19 01:35 102.2 100 24 135/80 96 Room Air 09/22/19 00:00 102.2 100 24 135/80 96 Room Air 09/21/19 22:52 102.2 09/21/19 22:27 104 24 Room Air 09/21/19 22:27 103.3 100 24 135/80 96 Room Air 09/21/19 21:18 103.3 104 24 135/80 (98) 96 Room Air Intake and Output 09/21/19 09/22/19 19:00 07:00 # Voids 1 Laboratory Tests Test 09/21/19 21:53 09/22/19 00:10 09/22/19 07:30 White Blood Count 7.5 K/UL (4.8-10.8) 7.8 K/UL (4.8-10.8) Red Blood Count 3.79 M/UL (4.20-5.40) L 3.98 M/UL (4.20-5.40) L Hemoglobin 11.6 G/DL (12.0-16.0) L 12.2 G/DL (12.0-16.0) Hematocrit 36.7 % (37.0-47.0) L 35.7 % (37.0-47.0) L Mean Corpuscular Volume 97 FL (80-99) 90 FL (80-99) Mean Corpuscular Hemoglobin 30.5 PG (27.0-31.0) 30.7 PG (27.0-31.0) Mean Corpuscular Hemoglobin Concent 31.6 G/DL (32.0-36.0) L 34.2 G/DL (32.0-36.0) Red Cell Distribution Width 13.2 % (11.6-14.8) 11.8 % (11.6-14.8) Platelet Count 169 K/UL (150-450) 163 K/UL (150-450) Mean Platelet Volume 7.0 FL (6.5-10.1) 5.2 FL (6.5-10.1) L Neutrophils (%) (Auto) 87.2 % (45.0-75.0) H 79.8 % (45.0-75.0) H Lymphocytes (%) (Auto) 5.9 % (20.0-45.0) L 11.6 % (20.0-45.0) L Monocytes (%) (Auto) 6.3 % (1.0-10.0) 8.4 % (1.0-10.0) Eosinophils (%) (Auto) 0.0 % (0.0-3.0) 0.0 % (0.0-3.0) Basophils (%) (Auto) 0.5 % (0.0-2.0) 0.2 % (0.0-2.0) D-Dimer 0.79 mg/L FEU (0.00-0.49) H Sodium Level 140 MMOL/L (136-145) 141 MMOL/L (136-145) Potassium Level 3.6 MMOL/L (3.5-5.1) 3.3 MMOL/L (3.5-5.1) L Chloride Level 101 MMOL/L (98-107) 102 MMOL/L (98-107) Carbon Dioxide Level 29 MMOL/L (21-32) 28 MMOL/L (21-32) Anion Gap 10 mmol/L (5-15) 11 mmol/L (5-15) Blood Urea Nitrogen 16 mg/dL (7-18) 14 mg/dL (7-18) Creatinine 1.1 MG/DL (0.55-1.30) 0.8 MG/DL (0.55-1.30) Estimat Glomerular Filtration Rate > 60 mL/min (>60) > 60 mL/min (>60) Glucose Level 142 MG/DL (74-106) H 114 MG/DL (74-106) H Lactic Acid Level 1.50 mmol/L (0.4-2.0) Calcium Level 8.8 MG/DL (8.5-10.1) 8.7 MG/DL (8.5-10.1) Ferritin 147 NG/ML (8-388) Total Bilirubin 0.7 MG/DL (0.2-1.0) 0.7 MG/DL (0.2-1.0) Aspartate Amino Transf (AST/SGOT) 29 U/L (15-37) 29 U/L (15-37) Alanine Aminotransferase (ALT/SGPT) 27 U/L (12-78) 25 U/L (12-78) Alkaline Phosphatase 39 U/L (46-116) L 25 U/L (46-116) L Lactate Dehydrogenase 299 U/L (81-234) H C-Reactive Protein, Quantitative 17.8 mg/dL (0.00-0.90) H Total Protein 8.2 G/DL (6.4-8.2) 7.5 G/DL (6.4-8.2) Albumin 3.8 G/DL (3.4-5.0) 3.4 G/DL (3.4-5.0) Globulin 4.4 g/dL 4.1 g/dL Albumin/Globulin Ratio 0.9 (1.0-2.7) L 0.8 (1.0-2.7) L Urine Color Yellow Urine Appearance Clear Urine pH 6 (4.5-8.0) Urine Specific [place] 1.015 (1.005-1.035) Urine Protein 2+ (NEGATIVE) H Urine Glucose (UA) Negative (NEGATIVE) Urine Ketones 1+ (NEGATIVE) H Urine Blood 3+ (NEGATIVE) H Urine Nitrite Negative (NEGATIVE) Urine Bilirubin Negative (NEGATIVE) Urine Urobilinogen 4 MG/DL (0.0-1.0) H Urine Leukocyte Esterase 3+ (NEGATIVE) H Urine RBC 2-4 /HPF (0 - 2) H Urine WBC 10-15 /HPF (0 - 2) H Urine Squamous Epithelial Cells Few /LPF (NONE/OCC) Urine Bacteria Few /HPF (NONE) Phosphorus Level 2.7 MG/DL (2.5-4.9) Magnesium Level 2.0 MG/DL (1.8-2.4) Troponin I 0.038 ng/mL (0.000-0.056) Calcitonin Level Pending Microbiology Date/Time Source Procedure Growth Status 09/22/19 00:55 Rectum Received Height (Feet): 5 Height (Inches): 5.00 Weight (Pounds): 160 Medications Current Medications Medications (Trade) Dose Ordered Sig/Shazia Route PRN Reason Start Time Stop Time Status Last Admin Dose Admin Acetaminophen (Tylenol) 650 mg Q6H PRN ORAL Mild Pain (Pain Scale 1-3) 09/22/19 10:30 10/22/19 10:29 Acetaminophen (Tylenol) 650 mg Q6H PRN ORAL Temp >100.5 09/22/19 10:30 10/22/19 10:29 Aspirin (ASA) 81 mg DAILY ORAL 09/23/19 09:00 11/07/19 08:59 Azithromycin (Zithromax) 250 mg Q24H ORAL 09/22/19 21:00 09/26/19 21:01 Ceftriaxone Sodium 1 gm/ Dextrose 55 ml @ 110 mls/hr Q24H IVPB 09/22/19 22:00 09/29/19 21:59 Enoxaparin Sodium (Lovenox) 40 mg DAILY SUBQ 09/22/19 09:00 12/21/19 08:59 09/22/19 09:12 Furosemide (Lasix) 20 mg DAILY ORAL 09/22/19 09:00 10/22/19 08:59 09/22/19 10:55 Gabapentin (Neurontin) 300 mg THREE TIMES A DAY ORAL 09/22/19 09:00 10/22/19 08:59 09/22/19 13:17 Guaifenesin/ Dextromethorphan (Robitussin DM Syrup) 15 ml Q6H PRN ORAL For Cough 09/22/19 08:00 12/21/19 07:59 09/22/19 09:10 Lamotrigine (LaMICtal) 100 mg DAILY ORAL 09/22/19 09:00 10/22/19 08:59 09/22/19 10:14 Lamotrigine (LaMICtal) 150 mg BEDTIME ORAL 09/22/19 21:00 10/22/19 20:59 Metoprolol Tartrate (Lopressor) 50 mg BID ORAL 09/22/19 09:00 12/21/19 08:59 09/22/19 09:07 Olanzapine (ZyPREXA) 10 mg BEDTIME ORAL 09/23/19 21:00 11/06/19 08:59 Ondansetron HCl (Zofran) 4 mg Q4H PRN IVP Nausea & Vomiting 09/22/19 10:30 10/22/19 10:29 Assessment/Plan Assessment/Plan: Abx: Ceftriaxone 09/20- Azithromycin 09/20- Assessment: Sepsis Ro probable bacteremia Probable PNA- r/o COVID -CXR: Vascular and interstitial prominence perhaps early edema. Fever No leukocytosis/Lymphopenia R/o UTI -u/a wbc 10-15, nit neg, leuk +3; ucx p schizophrenia HTN [place] resident ([facility]) Plan: -Switch empiric Ceftriaxone #2 to Cefepime -Continue empiric Azithromycin #2 -f/u cx -Monitor CBC/CMP, temperatures -COVID19 isolation and testing Thank you for consulting [facility]. Will continue to follow along with you. Discussed with RN, Kristel Hernandez M.D. September 22, 2019 13:36
[2019-09-22] MEDS: Cefepime HCl 1 GM in D5W 55 ML IVPB SCH ×2 (14:57→20:45)
--- NOTE | 2019-09-22 17:38 | History & Physical ---
History and Physical History & Physicial Dictated for Int Med-DR Vicente no. [id number] Blaine Orozco MD September 22, 2019 17:38
[2019-09-22] MEDS: Azithromycin 250mg tab ORAL SCH (20:44)
[2019-09-22] MEDS: LaMICtal 150mg tab ORAL SCH (20:44)
[2019-09-22] MEDS ORDERED: LaMICtal 150mg tab ORAL SCH (21:00)
[2019-09-22] MEDS ORDERED: cefTRIAXone 1 GM in D5W 55 ML IVPB SCH (22:00)
--- NOTE | 2019-09-23 00:45 | History and Physical Report ---
DATE OF ADMISSION: 09/22/2019 CHIEF COMPLAINT: Patient is a 64-year-old female, who presents with a chief complaint of fever and cough. HISTORY OF PRESENT ILLNESS: Patient is a resident of [facility]. Patient began to experience fever yesterday, 09/21/2019. Patient then began to experience a nonproductive cough. Patient states she had no appetite. Patient presented to [facility] emergency room. Patient was admitted for fever and cough to rule out COVID-19. REVIEW OF SYSTEMS: CONSTITUTIONAL: Patient complains of fever as above. HEENT: Patient denies ear or throat pain. Patient denies headache. CARDIOVASCULAR: Patient denies palpitation or chest pain. CHEST: Patient complains of nonproductive cough as above. Patient denies wheezes. ABDOMEN: Patient denies nausea, vomiting, diarrhea, or constipation. GENITOURINARY: Patient denies dysuria or increased frequency urination. NEUROMUSCULAR: Patient denies seizures or generalized weakness. PAST MEDICAL HISTORY: Significant for: 1. Hypertension. 2. Paranoid schizophrenia. 3. Migraine headache. 4. Left carotid stenosis. PAST SURGICAL HISTORY: Patient denies; however, records from [facility] revealed: 1. Total abdominal hysterectomy. 2. Previous colostomy. CURRENT MEDICATIONS: 1. Lasix 20 mg p.o. daily. 2. Metoprolol 50 mg 1 tablet p.o. twice daily. 3. Neurontin 300 mg 1 tablet p.o. 3 times daily. 4. Olanzapine 10 mg 1 tablet p.o. twice daily. ALLERGIES: To ibuprofen and codeine. SOCIAL HISTORY: Patient is and is a resident of [facility]. Patient denies tobacco or alcohol use. PHYSICAL EXAMINATION: VITAL SIGNS: Temperature 103.3, respirations 24, pulse 104, blood pressure 135/80. GENERAL: Patient is well-developed, well-nourished female, in no apparent distress. HEENT: Eyes, pupils are equal and responsive to light and accommodation. Extraocular movements are intact. NECK: Supple without lymphadenopathy. CHEST: Lungs are clear to auscultation bilaterally without wheezes or rales. CARDIOVASCULAR: Regular rhythm and rate. S1, S2 are normal without murmurs, rubs, or gallops. ABDOMEN: Soft, nontender, nondistended. Positive bowel sounds. No evidence of hepatosplenomegaly. Currently, no rebound or guarding noted. EXTREMITIES: Negative for clubbing, cyanosis, or edema. RECTAL/GENITAL: Not performed. NEUROLOGIC: Cranial nerves II through XII are grossly intact without focal deficits. Motor strength is 5/5 bilaterally. Deep tendon reflexes are 2+ plantar. LABORATORY STUDIES: WBC 7.5, hemoglobin 11.6, hematocrit 36.7, platelets 169,000. Sodium 140, potassium 3.6, chloride 101, CO2 29, BUN 16, creatinine 1.1, glucose 142. Urinalysis showed 2+ protein, 1+ ketones, 3+ blood, 3+ leukocyte esterase with 10 to 15 wbc's per high-powered field. Chest x-ray was reported as vascular interstitial prominence consistent with edema. ASSESSMENT: This is a 64-year-old female. 1. Fever. 2. Cough. 3. Urinary tract infection. 4. Hypertension. 5. Paranoid schizophrenia. 6. Migraine headache. 7. Carotid stenosis. TREATMENT: 1. Fever/cough. COVID-19 is highly suspicious secondary to elevated temperature and cough. A COVID-19 swab is pending. We will follow recommendations of Infectious Disease, Dr. Hernandez. 2. Urinary tract infection. Urine culture is pending. Patient has been started empirically on intravenous cefepime and azithromycin. We will follow recommendations of Infectious Disease. A Pulmonary consultation has been obtained with Dr. Helene Olmedo. 3. Hypertension. Continue metoprolol and Lasix as above. 4. Migraine headache. 5. Left carotid stenosis. 6. Paranoid schizophrenia. Continue Zyprexa as above. Blaine Orozco M.D. DR: SESAR JOB#: [id number] CC:
[2019-09-23 04:00] VITALS: BP 131/82
[2019-09-23 05:58] LABS: BASOPHILS % (AUTO) 0.2 % (0.0-2.0); HEMATOCRIT 33.4 % (37.0-47.0); HEMOGLOBIN 11.4 G/DL (12.0-16.0); LYMPHOCYTES % (AUTO) 19.5 % (20.0-45.0); MEAN CORPUSCULAR VOLUME 90 FL (80-99); MONOCYTES % (AUTO) 10.7 % (1.0-10.0); NEUTROPHILS % (AUTO) 69.5 % (45.0-75.0); PLATELET COUNT 151 K/UL (150-450); RED BLOOD COUNT 3.73 M/UL (4.20-5.40); RED CELL DISTRIBUTION WIDTH 12.1 % (11.6-14.8); WHITE BLOOD COUNT 4.3 K/UL (4.8-10.8)
--- NOTE | 2019-09-23 06:15 | Consultation ---
DATE OF CONSULTATION: 09/22/2019 HISTORY OF PRESENT ILLNESS: This is a 64-year-old male with a history of schizophrenia and cognitive impairment, who is well known to this physician from [facility], who has been admitted to the hospital for productive cough and fever. The patient is stable and able to answer the questions. No behavior issues are noted. The patient is on risperidone and temazepam and is stable at baseline. The patient has low appetite. PAST PSYCHIATRIC HISTORY: Schizophrenia, on risperidone; cognitive impairment; and episodes of confusion. He has not been hospitalized for years and she has been stable on risperidone. PAST MEDICAL HISTORY: Significant for hypertension. ALLERGIES: Codeine and ibuprofen. SUBSTANCE ABUSE HISTORY: No Known history of illicit drug use or alcohol. MENTAL STATUS EXAMINATION: The patient is alert and oriented times self, place, situation, did not know the date. Mood is neutral to anxious. Affect is flat. Thought process, there is a paucity of thought content. Thought content, no suicidal or homicidal ideation. Cognition, memory is impaired. Insight and judgment are impaired. ASSESSMENT: Mott I Schizophrenia. Acute encephalopathy. Mott II Deferred. Mott III As above. Mott IV Low. Mott V 20. PLAN: 1. Zyprexa 10 mg p.o. at bedtime. 2. Lamictal 100 mg daily. 3. Continue to follow and readjust the medications. Nayely Mcclure M.D. DR: ANNEMARIE JOB#: [id number] CC:
[2019-09-23 06:32] LABS: ALANINE AMINOTRANSFERASE 34 U/L (12-78); ALBUMIN 3.2 G/DL (3.4-5.0); ALBUMIN/GLOBULIN RATIO 0.8 (1.0-2.7); ALKALINE PHOSPHATASE 26 U/L (46-116); ANION GAP 11 mmol/L (5-15); ASPARTATE AMINO TRANSFERASE 54 U/L (15-37); BILIRUBIN,TOTAL 0.5 MG/DL (0.2-1.0); BLOOD UREA NITROGEN 16 mg/dL (7-18); CALCIUM 8.4 MG/DL (8.5-10.1); CARBON DIOXIDE 27 MMOL/L (21-32); CHLORIDE 104 MMOL/L (98-107); PHOSPHORUS 2.8 MG/DL (2.5-4.9); POTASSIUM 3.4 MMOL/L (3.5-5.1); SODIUM 142 MMOL/L (136-145)
[2019-09-23 08:00] VITALS: BP 148/93
[2019-09-23] MEDS: Cefepime HCl 1 GM in D5W 55 ML IVPB SCH ×2 (08:25→20:38)
[2019-09-23] MEDS: Aspirin Baby 81mg ORAL SCH (08:25)
[2019-09-23] MEDS: Metoprolol Tartrate 50mg tab ORAL SCH ×2 (08:25→17:30)
[2019-09-23] MEDS: Enoxaparin 40mg Inj SUBQ SCH (09:00)
--- NOTE | 2019-09-23 10:18 | Diagnostic Imaging Report ---
Procedure: XRAY Chest 1v Reason for study: Reason For Exam: [id number] Comparison films: None. FINDINGS: 09/21/2019 Vascularity is normal. Right basilar infiltrates unchanged. Cardiac and mediastinal silhouette are within normal limits. CP angles are sharp. The bony thorax appear unremarkable. IMPRESSION: NO SIGNIFICANT CHANGE COMPARED TO PREVIOUS EXAM.
[2019-09-23 12:00] VITALS: BP 142/86
--- NOTE | 2019-09-23 12:45 | Infectious Diseases Prog Note ---
Assessment/Plan Assessment/Plan Assessment: Sepsis PNA- r/o COVID -09/22 CXR: Right basilar infiltrates unchanged. -09/20 CXR: Vascular and interstitial prominence perhaps early edema. Fever No leukocytosis/Lymphopenia -09/20 Bcx NTD -u/a wbc 10-15, nit neg, leuk +3; ucx mixed gram positive growth schizophrenia HTN [place] resident ([facility] [place]) Plan: -Continue empiric Cefepime #2 (abxd #3) and Azithromycin #3 -09/21 SP Ceftriaxone #2 -f/u cx -Monitor CBC/CMP, temperatures -COVID19 isolation and testing Thank you for consulting [facility]. Will continue to follow along with you. Discussed with RN, Subjective Allergies: Coded Allergies: CODEINE (Verified Allergy, Unknown, 12/01/18) IBUPROFEN (Verified Allergy, Unknown, 12/01/18) Subjective fever curve improving; Tm 102.6 at RA Objective Vital Signs Last 24 Hour Vital Signs Date Time Temp Pulse Resp B/P (MAP) Pulse Ox O2 Delivery O2 Flow Rate FiO2 09/23/19 12:00 97.8 82 20 142/86 (104) 95 09/23/19 09:00 Room Air 09/23/19 08:25 85 148/93 09/23/19 08:00 98.2 85 20 148/93 (111) 92 09/23/19 07:18 100.0 09/23/19 04:00 101.7 86 20 131/82 (98) 93 09/23/19 00:45 164/75 09/22/19 23:47 100.9 91 18 164/75 (104) 93 09/22/19 21:56 Room Air 09/22/19 20:30 100.2 74 18 151/80 (103) 93 09/22/19 18:13 84 155/83 09/22/19 16:00 102.6 84 18 155/83 (107) 93 Height (Feet): 5 Height (Inches): 5.00 Weight (Pounds): 160 Objective not examined to limit COVID19 exposure Microbiology Date/Time Source Procedure Growth Status 09/21/19 21:53 Blood Blood Culture - Preliminary NO GROWTH AFTER 24 HOURS Resulted 09/21/19 21:53 Blood Blood Culture - Preliminary NO GROWTH AFTER 24 HOURS Resulted 09/22/19 00:10 Urine,Clean Catch Urine Culture - Preliminary Mixed Gram Positive Organism Resulted 09/22/19 00:55 Rectum Received Laboratory Tests Test 09/22/19 15:30 09/23/19 05:40 Urine Legionella Antigen Pending White Blood Count 4.3 K/UL (4.8-10.8) L Red Blood Count 3.73 M/UL (4.20-5.40) L Hemoglobin 11.4 G/DL (12.0-16.0) L Hematocrit 33.4 % (37.0-47.0) L Mean Corpuscular Volume 90 FL (80-99) Mean Corpuscular Hemoglobin 30.6 PG (27.0-31.0) Mean Corpuscular Hemoglobin Concent 34.1 G/DL (32.0-36.0) Red Cell Distribution Width 12.1 % (11.6-14.8) Platelet Count 151 K/UL (150-450) Mean Platelet Volume 5.2 FL (6.5-10.1) L Neutrophils (%) (Auto) 69.5 % (45.0-75.0) Lymphocytes (%) (Auto) 19.5 % (20.0-45.0) L Monocytes (%) (Auto) 10.7 % (1.0-10.0) H Eosinophils (%) (Auto) 0.0 % (0.0-3.0) Basophils (%) (Auto) 0.2 % (0.0-2.0) Sodium Level 142 MMOL/L (136-145) Potassium Level 3.4 MMOL/L (3.5-5.1) L Chloride Level 104 MMOL/L (98-107) Carbon Dioxide Level 27 MMOL/L (21-32) Anion Gap 11 mmol/L (5-15) Blood Urea Nitrogen 16 mg/dL (7-18) Creatinine 1.0 MG/DL (0.55-1.30) Estimat Glomerular Filtration Rate > 60 mL/min (>60) Glucose Level 128 MG/DL (74-106) H Calcium Level 8.4 MG/DL (8.5-10.1) L Phosphorus Level 2.8 MG/DL (2.5-4.9) Magnesium Level 2.0 MG/DL (1.8-2.4) Total Bilirubin 0.5 MG/DL (0.2-1.0) Aspartate Amino Transf (AST/SGOT) 54 U/L (15-37) H Alanine Aminotransferase (ALT/SGPT) 34 U/L (12-78) Alkaline Phosphatase 26 U/L (46-116) L Pro-B-Type Natriuretic Peptide 598 pg/mL (0-125) H Total Protein 7.4 G/DL (6.4-8.2) Albumin 3.2 G/DL (3.4-5.0) L Globulin 4.2 g/dL Albumin/Globulin Ratio 0.8 (1.0-2.7) L Current Medications Medications (Trade) Dose Ordered Sig/Shazia Route PRN Reason Start Time Stop Time Status Last Admin Dose Admin Acetaminophen (Tylenol) 650 mg Q6H PRN ORAL Temp >100.5 09/22/19 10:30 10/22/19 10:29 09/23/19 06:41 Acetaminophen (Tylenol) 650 mg Q6H PRN ORAL Mild Pain (Pain Scale 1-3) 09/22/19 10:30 10/22/19 10:29 Aspirin (ASA) 81 mg DAILY ORAL 09/23/19 09:00 11/07/19 08:59 09/23/19 08:25 Azithromycin (Zithromax) 250 mg Q24H ORAL 09/22/19 21:00 09/26/19 21:01 09/22/19 20:44 Cefepime HCl 1 gm/ Dextrose 55 ml @ 110 mls/hr EVERY 12 HOURS IVPB 09/22/19 15:00 09/29/19 14:59 09/23/19 08:25 Clonidine HCl (Catapres Tab) 0.1 mg Q4H PRN ORAL For High Blood Pressure 09/23/19 00:45 12/22/19 00:44 09/23/19 00:45 Enoxaparin Sodium (Lovenox) 40 mg DAILY SUBQ 09/22/19 09:00 12/21/19 08:59 09/22/19 09:12 Furosemide (Lasix) 20 mg DAILY ORAL 09/22/19 09:00 10/22/19 08:59 09/23/19 08:25 Gabapentin (Neurontin) 300 mg THREE TIMES A DAY ORAL 09/22/19 09:00 10/22/19 08:59 09/23/19 12:15 Guaifenesin/ Dextromethorphan (Robitussin DM Syrup) 15 ml Q6H PRN ORAL For Cough 09/22/19 08:00 12/21/19 07:59 09/22/19 09:10 Lamotrigine (LaMICtal) 100 mg DAILY ORAL 09/22/19 09:00 10/22/19 08:59 09/23/19 08:25 Lamotrigine (LaMICtal) 150 mg BEDTIME ORAL 09/22/19 21:00 10/22/19 20:59 09/22/19 20:44 Metoprolol Tartrate (Lopressor) 50 mg BID ORAL 09/22/19 09:00 12/21/19 08:59 09/23/19 08:25 Olanzapine (ZyPREXA) 10 mg BEDTIME ORAL 09/23/19 21:00 11/06/19 08:59 Ondansetron HCl (Zofran) 4 mg Q4H PRN IVP Nausea & Vomiting 09/22/19 10:30 10/22/19 10:29 Kristel Hernandez M.D. September 23, 2019 12:45
--- NOTE | 2019-09-23 13:30 | Pulmonology Progress Note ---
Subjective ROS Limited/Unobtainable: No Interval Events: has episodes of shaking Allergies: Coded Allergies: CODEINE (Verified Allergy, Unknown, 12/01/18) IBUPROFEN (Verified Allergy, Unknown, 12/01/18) Objective Last 24 Hour Vital Signs Date Time Temp Pulse Resp B/P (MAP) Pulse Ox O2 Delivery O2 Flow Rate FiO2 09/23/19 12:00 97.8 82 20 142/86 (104) 95 09/23/19 09:00 Room Air 09/23/19 08:25 85 148/93 09/23/19 08:00 98.2 85 20 148/93 (111) 92 09/23/19 07:18 100.0 09/23/19 04:00 101.7 86 20 131/82 (98) 93 09/23/19 00:45 164/75 09/22/19 23:47 100.9 91 18 164/75 (104) 93 09/22/19 21:56 Room Air 09/22/19 20:30 100.2 74 18 151/80 (103) 93 09/22/19 18:13 84 155/83 09/22/19 16:00 102.6 84 18 155/83 (107) 93 Intake and Output 09/22/19 09/23/19 19:00 07:00 Intake Total 474 ml 415 ml Balance 474 ml 415 ml Intake Oral 474 ml 360 ml IV Total 55 ml # Voids 1 3 # Bowel Movements 3 General Appearance: WD/WN HEENT: normocephalic, atraumatic Respiratory: chest wall non-tender, lungs clear Breasts: no masses Cardiovascular: normal peripheral pulses Abdomen: normal bowel sounds, soft, non tender, no scars Extremities: no cyanosis Microbiology Date/Time Source Procedure Growth Status 09/21/19 21:53 Blood Blood Culture - Preliminary NO GROWTH AFTER 24 HOURS Resulted 09/21/19 21:53 Blood Blood Culture - Preliminary NO GROWTH AFTER 24 HOURS Resulted 09/22/19 00:10 Urine,Clean Catch Urine Culture - Preliminary Mixed Gram Positive Organism Resulted 09/22/19 00:55 Rectum Received Laboratory Tests 09/22/19 15:30: Urine Legionella Antigen [Pending] 09/23/19 05:40: White Blood Count 4.3L, Red Blood Count 3.73L, Hemoglobin 11.4L, Hematocrit 33.4L, Mean Corpuscular Volume 90, Mean Corpuscular Hemoglobin 30.6, Mean Corpuscular Hemoglobin Concent 34.1, Red Cell Distribution Width 12.1, Platelet Count 151, Mean Platelet Volume 5.2L, Neutrophils (%) (Auto) 69.5, Lymphocytes ( %) (Auto) 19.5L, Monocytes (%) (Auto) 10.7H, Eosinophils (%) (Auto) 0.0, Basophils (%) (Auto) 0.2, Sodium Level 142, Potassium Level 3.4L, Chloride Level 104, Carbon Dioxide Level 27, Anion Gap 11, Blood Urea Nitrogen 16, Creatinine 1.0, Estimat Glomerular Filtration Rate > 60, Glucose Level 128H, Calcium Level 8.4L, Phosphorus Level 2.8, Magnesium Level 2.0, Total Bilirubin 0.5, Aspartate Amino Transf (AST/SGOT) 54H, Alanine Aminotransferase (ALT/SGPT) 34, Alkaline Phosphatase 26L, Pro-B-Type Natriuretic Peptide 598H, Total Protein 7.4, Albumin 3.2L, Globulin 4.2, Albumin/Globulin Ratio 0.8L Current Medications Medications (Trade) Dose Ordered Sig/Shazia Route PRN Reason Start Time Stop Time Status Last Admin Dose Admin Acetaminophen (Tylenol) 650 mg Q6H PRN ORAL Temp >100.5 09/22/19 10:30 10/22/19 10:29 09/23/19 06:41 Acetaminophen (Tylenol) 650 mg Q6H PRN ORAL Mild Pain (Pain Scale 1-3) 09/22/19 10:30 10/22/19 10:29 Aspirin (ASA) 81 mg DAILY ORAL 09/23/19 09:00 11/07/19 08:59 09/23/19 08:25 Azithromycin (Zithromax) 250 mg Q24H ORAL 09/22/19 21:00 09/26/19 21:01 09/22/19 20:44 Cefepime HCl 1 gm/ Dextrose 55 ml @ 110 mls/hr EVERY 12 HOURS IVPB 09/22/19 15:00 09/29/19 14:59 09/23/19 08:25 Clonidine HCl (Catapres Tab) 0.1 mg Q4H PRN ORAL For High Blood Pressure 09/23/19 00:45 12/22/19 00:44 09/23/19 00:45 Enoxaparin Sodium (Lovenox) 40 mg DAILY SUBQ 09/22/19 09:00 12/21/19 08:59 09/22/19 09:12 Furosemide (Lasix) 20 mg DAILY ORAL 09/22/19 09:00 10/22/19 08:59 09/23/19 08:25 Gabapentin (Neurontin) 300 mg THREE TIMES A DAY ORAL 09/22/19 09:00 10/22/19 08:59 09/23/19 12:15 Guaifenesin/ Dextromethorphan (Robitussin DM Syrup) 15 ml Q6H PRN ORAL For Cough 09/22/19 08:00 12/21/19 07:59 09/22/19 09:10 Lamotrigine (LaMICtal) 100 mg DAILY ORAL 09/22/19 09:00 10/22/19 08:59 09/23/19 08:25 Lamotrigine (LaMICtal) 150 mg BEDTIME ORAL 09/22/19 21:00 10/22/19 20:59 09/22/19 20:44 Metoprolol Tartrate (Lopressor) 50 mg BID ORAL 09/22/19 09:00 12/21/19 08:59 09/23/19 08:25 Olanzapine (ZyPREXA) 10 mg BEDTIME ORAL 09/23/19 21:00 11/06/19 08:59 Ondansetron HCl (Zofran) 4 mg Q4H PRN IVP Nausea & Vomiting 09/22/19 10:30 10/22/19 10:29 Assessment/Plan Problems: (1) RLL pneumonia (2) Fever (3) Pleural effusion (4) Suspected COVID-19 virus infection (5) Hypertension (6) Paranoid schizophrenia (7) detention resident Assessment/Plan still febrile respiratory treatment check cultures iv abx ID evaluation appreciated monitor HTN. cxr reviewed today, no changes Helene Olmedo MD September 23, 2019 13:30
[2019-09-23 16:00] VITALS: BP 151/85
--- NOTE | 2019-09-23 16:27 | Internal Med Progress Note ---
Subjective Physician Name Guillermo Vicente Attending Physician Guillermo Vicente MD Current Medications Medications (Trade) Dose Ordered Sig/Shazia Route PRN Reason Start Time Stop Time Status Last Admin Dose Admin Acetaminophen (Tylenol) 650 mg Q6H PRN ORAL Temp >100.5 09/22/19 10:30 10/22/19 10:29 09/23/19 15:52 Acetaminophen (Tylenol) 650 mg Q6H PRN ORAL Mild Pain (Pain Scale 1-3) 09/22/19 10:30 10/22/19 10:29 Aspirin (ASA) 81 mg DAILY ORAL 09/23/19 09:00 11/07/19 08:59 09/23/19 08:25 Azithromycin (Zithromax) 250 mg Q24H ORAL 09/22/19 21:00 09/26/19 21:01 09/22/19 20:44 Cefepime HCl 1 gm/ Dextrose 55 ml @ 110 mls/hr EVERY 12 HOURS IVPB 09/22/19 15:00 09/29/19 14:59 09/23/19 08:25 Clonidine HCl (Catapres Tab) 0.1 mg Q4H PRN ORAL For High Blood Pressure 09/23/19 00:45 12/22/19 00:44 09/23/19 00:45 Enoxaparin Sodium (Lovenox) 40 mg DAILY SUBQ 09/22/19 09:00 12/21/19 08:59 09/22/19 09:12 Furosemide (Lasix) 20 mg DAILY ORAL 09/22/19 09:00 10/22/19 08:59 09/23/19 08:25 Gabapentin (Neurontin) 300 mg THREE TIMES A DAY ORAL 09/22/19 09:00 10/22/19 08:59 09/23/19 12:15 Guaifenesin/ Dextromethorphan (Robitussin DM Syrup) 15 ml Q6H PRN ORAL For Cough 09/22/19 08:00 12/21/19 07:59 09/22/19 09:10 Lamotrigine (LaMICtal) 100 mg DAILY ORAL 09/22/19 09:00 10/22/19 08:59 09/23/19 08:25 Lamotrigine (LaMICtal) 150 mg BEDTIME ORAL 09/22/19 21:00 10/22/19 20:59 09/22/19 20:44 Metoprolol Tartrate (Lopressor) 50 mg BID ORAL 09/22/19 09:00 12/21/19 08:59 09/23/19 08:25 Olanzapine (ZyPREXA) 10 mg BEDTIME ORAL 09/23/19 21:00 11/06/19 08:59 Ondansetron HCl (Zofran) 4 mg Q4H PRN IVP Nausea & Vomiting 09/22/19 10:30 10/22/19 10:29 Allergies: Coded Allergies: CODEINE (Verified Allergy, Unknown, 12/01/18) IBUPROFEN (Verified Allergy, Unknown, 12/01/18) Subjective Awake, alert, responsive, denies any chest pain, denies any shortness of breath or nausea/vomiting. Spiked a fever of 102.9 today. In [place] [address] isolation room. Objective Last Vital Signs Date Time Temp Pulse Resp B/P (MAP) Pulse Ox O2 Delivery O2 Flow Rate FiO2 09/23/19 16:00 102.9 75 18 151/85 (107) 92 09/23/19 09:00 Room Air Laboratory Tests Test 09/23/19 05:40 White Blood Count 4.3 K/UL (4.8-10.8) L Red Blood Count 3.73 M/UL (4.20-5.40) L Hemoglobin 11.4 G/DL (12.0-16.0) L Hematocrit 33.4 % (37.0-47.0) L Mean Corpuscular Volume 90 FL (80-99) Mean Corpuscular Hemoglobin 30.6 PG (27.0-31.0) Mean Corpuscular Hemoglobin Concent 34.1 G/DL (32.0-36.0) Red Cell Distribution Width 12.1 % (11.6-14.8) Platelet Count 151 K/UL (150-450) Mean Platelet Volume 5.2 FL (6.5-10.1) L Neutrophils (%) (Auto) 69.5 % (45.0-75.0) Lymphocytes (%) (Auto) 19.5 % (20.0-45.0) L Monocytes (%) (Auto) 10.7 % (1.0-10.0) H Eosinophils (%) (Auto) 0.0 % (0.0-3.0) Basophils (%) (Auto) 0.2 % (0.0-2.0) Sodium Level 142 MMOL/L (136-145) Potassium Level 3.4 MMOL/L (3.5-5.1) L Chloride Level 104 MMOL/L (98-107) Carbon Dioxide Level 27 MMOL/L (21-32) Anion Gap 11 mmol/L (5-15) Blood Urea Nitrogen 16 mg/dL (7-18) Creatinine 1.0 MG/DL (0.55-1.30) Estimat Glomerular Filtration Rate > 60 mL/min (>60) Glucose Level 128 MG/DL (74-106) H Calcium Level 8.4 MG/DL (8.5-10.1) L Phosphorus Level 2.8 MG/DL (2.5-4.9) Magnesium Level 2.0 MG/DL (1.8-2.4) Total Bilirubin 0.5 MG/DL (0.2-1.0) Aspartate Amino Transf (AST/SGOT) 54 U/L (15-37) H Alanine Aminotransferase (ALT/SGPT) 34 U/L (12-78) Alkaline Phosphatase 26 U/L (46-116) L Pro-B-Type Natriuretic Peptide 598 pg/mL (0-125) H Total Protein 7.4 G/DL (6.4-8.2) Albumin 3.2 G/DL (3.4-5.0) L Globulin 4.2 g/dL Albumin/Globulin Ratio 0.8 (1.0-2.7) L Microbiology Date/Time Source Procedure Growth Status 09/21/19 21:53 Blood Blood Culture - Preliminary NO GROWTH AFTER 24 HOURS Resulted 09/21/19 21:53 Blood Blood Culture - Preliminary NO GROWTH AFTER 24 HOURS Resulted 09/22/19 00:10 Urine,Clean Catch Urine Culture - Preliminary Mixed Gram Positive Organism Resulted 09/22/19 00:55 Rectum Received Intake and Output 09/22/19 09/23/19 19:00 07:00 Intake Total 474 ml 415 ml Balance 474 ml 415 ml Intake Oral 474 ml 360 ml IV Total 55 ml # Voids 1 3 # Bowel Movements 3 Objective General: No acute distress, awake and alert HEENT: NCAT, sclera anicteric, PERRL, EOMI. Neck: Supple, no significant jugular venous distention, Lungs: Fair inspiratory effort, decreased air at the bases. no Wheeze or Rales. Heart: Regular rate and rhythm, normal S1/S2, no murmur. Abdomen: soft, nontender, nondistended. Normoactive bowel sounds. / Rectal: Refused and deferred. Extremities: No Cyanosis , clubbing or edema. Neuro: A&O x 3, Able to move all extremities Skin: warm, no rashes or lesions Psych: Normal mood and affect Assessment/Plan Assessment/Plan ASSESSMENT: This is a 64-year-old female. 1. Fever possible COVID 19 infection. 2. Cough. 3. Urinary tract infection. 4. Hypertension. 5. Paranoid schizophrenia. 6. Migraine headache. 7. Carotid stenosis. TREATMENT: 1. Fever/cough. COVID-19 is highly suspicious secondary to elevated temperature and cough. A COVID-19 swab is pending. We will follow recommendations of Infectious Disease, Dr. Hernandez. 2. Urinary tract infection. Urine culture is pending. Patient has been started empirically on intravenous cefepime and azithromycin. We will follow recommendations of Infectious Disease. A Pulmonary consultation has been obtained with Dr. Helene Olmedo. 3. Hypertension. Continue metoprolol and Lasix as above. 4. Migraine headache. 5. Left carotid stenosis. 6. Paranoid schizophrenia. Continue Zyprexa as above. DVT prophylaxis: Lovenox injection. CODE STATUS: Full code. Follow-up with laboratory as well as culture. Guillermo Vicente MD September 23, 2019 16:27
[2019-09-23 20:00] VITALS: BP 134/68
[2019-09-23] MEDS: Azithromycin 250mg tab ORAL SCH (20:38)
[2019-09-23] MEDS: OLANZapine 10mg tab ORAL SCH (20:38)
[2019-09-23] MEDS: LaMICtal 150mg tab ORAL SCH (20:38)
[2019-09-24] VITALS: BP 139/62
[2019-09-24 04:00] VITALS: BP 156/99
[2019-09-24 08:00] VITALS: BP 134/74
[2019-09-24] MEDS: Metoprolol Tartrate 50mg tab ORAL SCH ×2 (08:34→17:30)
[2019-09-24] MEDS: Aspirin Baby 81mg ORAL SCH (08:34)
[2019-09-24] MEDS: Cefepime HCl 1 GM in D5W 55 ML IVPB SCH ×2 (08:35→20:24)
[2019-09-24] MEDS: Enoxaparin 40mg Inj SUBQ SCH (08:37)
--- NOTE | 2019-09-24 09:50 | General Progress Note ---
Assessment/Plan Problem List: (1) Pleural effusion ICD Codes: J90 - Pleural effusion, not elsewhere classified SNOMED: 24762645 (2) RLL pneumonia ICD Codes: J18.9 - Pneumonia, unspecified organism SNOMED: 881201268 Qualifiers: Qualified Codes: J18.9 - Pneumonia, unspecified organism (3) Hypertension ICD Codes: I10 - Essential (primary) hypertension SNOMED: 66921765 (4) Suspected COVID-19 virus infection ICD Codes: Z20.828 - Contact with and (suspected) exposure to other viral communicable diseases SNOMED: 650665614 (5) Paranoid schizophrenia ICD Codes: F20.0 - Paranoid schizophrenia SNOMED: 24222345 (6) Fever ICD Codes: R50.9 - Fever, unspecified SNOMED: 218592416 Status: progressing Assessment/Plan: borderline k pna respiratory insuff htn pleural effusion supportive therapy Subjective ROS Limited/Unobtainable: Yes Allergies: Coded Allergies: CODEINE (Verified Allergy, Unknown, 12/01/18) IBUPROFEN (Verified Allergy, Unknown, 12/01/18) Objective Last 24 Hour Vital Signs Date Time Temp Pulse Resp B/P (MAP) Pulse Ox O2 Delivery O2 Flow Rate FiO2 09/24/19 08:34 81 134/74 09/24/19 08:00 101.8 81 18 134/74 (94) 94 09/24/19 06:11 99.5 09/24/19 04:00 100.8 88 20 156/99 (118) 95 09/24/19 00:00 98.0 60 19 139/62 (87) 98 09/23/19 21:00 Room Air 09/23/19 20:00 98.4 63 19 134/68 (90) 98 09/23/19 17:30 75 151/85 09/23/19 16:00 102.9 75 18 151/85 (107) 92 09/23/19 12:00 97.8 82 20 142/86 (104) 95 Intake and Output 09/23/19 09/24/19 18:59 06:59 Intake Total 295 ml 295 ml Balance 295 ml 295 ml Intake Oral 240 ml 240 ml IV Total 55 ml 55 ml # Voids 2 2 # Bowel Movements 1 1 Height (Feet): 5 Height (Inches): 5.00 Weight (Pounds): 160 Jovany Velez MD September 24, 2019 09:50
[2019-09-24 12:00] VITALS: BP 152/84
--- NOTE | 2019-09-24 12:17 | Internal Med Progress Note ---
Subjective Date of Service: September 24, 2019 Physician Name PamBlaine Attending Physician Guillermo Vicente MD Current Medications Medications (Trade) Dose Ordered Sig/Shazia Route PRN Reason Start Time Stop Time Status Last Admin Dose Admin Acetaminophen (Tylenol) 650 mg Q6H PRN ORAL Temp >100.5 09/22/19 10:30 10/22/19 10:29 09/24/19 05:41 Acetaminophen (Tylenol) 650 mg Q6H PRN ORAL Mild Pain (Pain Scale 1-3) 09/22/19 10:30 10/22/19 10:29 Aspirin (ASA) 81 mg DAILY ORAL 09/23/19 09:00 11/07/19 08:59 09/24/19 08:34 Azithromycin (Zithromax) 250 mg Q24H ORAL 09/22/19 21:00 09/26/19 21:01 09/23/19 20:38 Cefepime HCl 1 gm/ Dextrose 55 ml @ 110 mls/hr EVERY 12 HOURS IVPB 09/22/19 15:00 09/29/19 14:59 09/24/19 08:35 Clonidine HCl (Catapres Tab) 0.1 mg Q4H PRN ORAL For High Blood Pressure 09/23/19 00:45 12/22/19 00:44 09/23/19 00:45 Enoxaparin Sodium (Lovenox) 40 mg DAILY SUBQ 09/22/19 09:00 12/21/19 08:59 09/24/19 08:37 Furosemide (Lasix) 20 mg DAILY ORAL 09/22/19 09:00 10/22/19 08:59 09/24/19 08:34 Gabapentin (Neurontin) 300 mg THREE TIMES A DAY ORAL 09/22/19 09:00 10/22/19 08:59 09/24/19 08:34 Guaifenesin/ Dextromethorphan (Robitussin DM Syrup) 15 ml Q6H PRN ORAL For Cough 09/22/19 08:00 12/21/19 07:59 09/22/19 09:10 Lamotrigine (LaMICtal) 100 mg DAILY ORAL 09/22/19 09:00 10/22/19 08:59 09/24/19 08:35 Lamotrigine (LaMICtal) 150 mg BEDTIME ORAL 09/22/19 21:00 10/22/19 20:59 09/23/19 20:38 Metoprolol Tartrate (Lopressor) 50 mg BID ORAL 09/22/19 09:00 12/21/19 08:59 09/24/19 08:34 Olanzapine (ZyPREXA) 10 mg BEDTIME ORAL 09/23/19 21:00 11/06/19 08:59 09/23/19 20:38 Ondansetron HCl (Zofran) 4 mg Q4H PRN IVP Nausea & Vomiting 09/22/19 10:30 10/22/19 10:29 Allergies: Coded Allergies: CODEINE (Verified Allergy, Unknown, 12/01/18) IBUPROFEN (Verified Allergy, Unknown, 12/01/18) ROS Limited/Unobtainable: No Constitutional: Reports: chills, fever HEENT: Reports: no symptoms Cardiovascular: Reports: no symptoms Respiratory: Reports: cough Gastrointestinal/Abdominal: Reports: no symptoms Genitourinary: Reports: no symptoms Neurologic/Psychiatric: Reports: no symptoms Subjective 64 YO F admitted with fever and cough. Cover for [facility] Med-Dr Vicente Objective Last Vital Signs Date Time Temp Pulse Resp B/P (MAP) Pulse Ox O2 Delivery O2 Flow Rate FiO2 09/24/19 12:00 101.5 71 18 152/84 (106) 97 09/24/19 09:00 Room Air Microbiology Date/Time Source Procedure Growth Status 09/21/19 21:53 Blood Blood Culture - Preliminary NO GROWTH AFTER 48 HOURS Resulted 09/21/19 21:53 Blood Blood Culture - Preliminary NO GROWTH AFTER 48 HOURS Resulted 09/22/19 00:55 Nasal Nares MRSA Culture - Final NO METHICILLIN RESISTANT STAPH AUREUS... Complete 09/22/19 00:10 Urine,Clean Catch Urine Culture - Final Mixed Gram Positive Organism Complete 09/22/19 00:55 Rectum - Final NO CARBAPENEM-RESISTANT ENTEROBACTERI... Complete 09/22/19 00:55 Rectum VRE Culture - Final Enterococcus Faecium - Vre Complete Intake and Output 09/23/19 09/24/19 19:00 07:00 Intake Total 295 ml 295 ml Balance 295 ml 295 ml Intake Oral 240 ml 240 ml IV Total 55 ml 55 ml # Voids 2 2 # Bowel Movements 1 1 Objective PHYSICAL EXAMINATION: GENERAL: Patient is well-developed, well-nourished female, in no apparent distress. HEENT: Eyes, pupils are equal and responsive to light and accommodation. Extraocular movements are intact. NECK: Supple without lymphadenopathy. CHEST: Lungs are clear to auscultation bilaterally without wheezes or rales. CARDIOVASCULAR: Regular rhythm and rate. S1, S2 are normal without murmurs, rubs, or gallops. ABDOMEN: Soft, nontender, nondistended. Positive bowel sounds. No evidence of hepatosplenomegaly. Currently, no rebound or guarding noted. EXTREMITIES: Negative for clubbing, cyanosis, or edema. RECTAL/GENITAL: Not performed. NEUROLOGIC: Cranial nerves II through XII are grossly intact without focal deficits. Motor strength is 5/5 bilaterally. Deep tendon reflexes are 2+ plantar. Assessment/Plan Assessment/Plan ASSESSMENT: This is a 64-year-old female. 1. Fever. 2. Cough. 3. Urinary tract infection. 4. Hypertension. 5. Paranoid schizophrenia. 6. Migraine headache. 7. Carotid stenosis. TREATMENT: 1. Fever/cough. COVID-19 is highly suspicious secondary to elevated temperature and cough. A COVID-19 swab is pending. We will follow recommendations of Infectious Disease, Dr. Hernandez. 2. Urinary tract infection. Urine culture = mixed. Patient has been started empirically on intravenous cefepime and azithromycin. We will follow recommendations of Infectious Disease. A Pulmonary consultation has been obtained with Dr. Helene Olmedo. 3. Hypertension. Continue metoprolol and Lasix as above. 4. Migraine headache. 5. Left carotid stenosis. 6. Paranoid schizophrenia. Continue Zyprexa as above. 7. DVT prophylaxis=Lovenox 8. Full code Blaine Orozco MD September 24, 2019 12:17
[2019-09-24 13:21] LABS: ANION GAP 8 mmol/L (5-15); BLOOD UREA NITROGEN 10 mg/dL (7-18); CALCIUM 8.5 MG/DL (8.5-10.1); CARBON DIOXIDE 28 MMOL/L (21-32); CHLORIDE 106 MMOL/L (98-107); CREATININE 0.9 MG/DL (0.55-1.30); POTASSIUM 3.5 MMOL/L (3.5-5.1); SODIUM 142 MMOL/L (136-145)
--- NOTE | 2019-09-24 14:55 | Infectious Diseases Prog Note ---
Assessment/Plan Assessment/Plan Assessment: Sepsis PNA- suspected COVID -09/22 CXR: Right basilar infiltrates unchanged. -09/20 CXR: Vascular and interstitial prominence perhaps early edema. Fever, persistent Mild leukopenia/Lymphopenia -09/20 Bcx NTD -u/a wbc 10-15, nit neg, leuk +3; ucx mixed gram positive growth schizophrenia HTN [place] resident ([facility]) Plan: -Continue empiric Cefepime #3 (abxd #4/5-7) and Azithromycin #4/5 -09/21 SP Ceftriaxone #2 -f/u cx -Monitor CBC/CMP, temperatures -COVID19 isolation and testing Thank you for consulting [facility]. Will continue to follow along with you. Discussed with RN, Subjective Allergies: Coded Allergies: CODEINE (Verified Allergy, Unknown, 12/01/18) IBUPROFEN (Verified Allergy, Unknown, 12/01/18) Subjective persistently febrile Tm 102.9 mild leukopenia at RA Bcx NTD still COVID pending Objective Vital Signs Last 24 Hour Vital Signs Date Time Temp Pulse Resp B/P (MAP) Pulse Ox O2 Delivery O2 Flow Rate FiO2 09/24/19 12:47 100.0 09/24/19 12:00 101.5 71 18 152/84 (106) 97 09/24/19 09:00 Room Air 09/24/19 08:34 81 134/74 09/24/19 08:00 101.8 81 18 134/74 (94) 94 09/24/19 04:00 100.8 88 20 156/99 (118) 95 09/24/19 00:00 98.0 60 19 139/62 (87) 98 09/23/19 21:00 Room Air 09/23/19 20:00 98.4 63 19 134/68 (90) 98 09/23/19 17:30 75 151/85 09/23/19 16:00 102.9 75 18 151/85 (107) 92 Height (Feet): 5 Height (Inches): 5.00 Weight (Pounds): 160 Objective not examined to limit COVID19 exposure Microbiology Date/Time Source Procedure Growth Status 09/21/19 21:53 Blood Blood Culture - Preliminary NO GROWTH AFTER 48 HOURS Resulted 09/21/19 21:53 Blood Blood Culture - Preliminary NO GROWTH AFTER 48 HOURS Resulted 09/22/19 00:55 Nasal Nares MRSA Culture - Final NO METHICILLIN RESISTANT STAPH AUREUS... Complete 09/22/19 00:10 Urine,Clean Catch Urine Culture - Final Mixed Gram Positive Organism Complete 09/22/19 00:55 Rectum - Final NO CARBAPENEM-RESISTANT ENTEROBACTERI... Complete 09/22/19 00:55 Rectum VRE Culture - Final Enterococcus Faecium - Vre Complete Laboratory Tests Test 09/24/19 12:15 Sodium Level 142 MMOL/L (136-145) Potassium Level 3.5 MMOL/L (3.5-5.1) Chloride Level 106 MMOL/L (98-107) Carbon Dioxide Level 28 MMOL/L (21-32) Anion Gap 8 mmol/L (5-15) Blood Urea Nitrogen 10 mg/dL (7-18) Creatinine 0.9 MG/DL (0.55-1.30) Estimat Glomerular Filtration Rate > 60 mL/min (>60) Glucose Level 94 MG/DL (74-106) Calcium Level 8.5 MG/DL (8.5-10.1) Current Medications Medications (Trade) Dose Ordered Sig/Shazia Route PRN Reason Start Time Stop Time Status Last Admin Dose Admin Acetaminophen (Tylenol) 650 mg Q6H PRN ORAL Temp >100.5 09/22/19 10:30 10/22/19 10:29 09/24/19 12:17 Acetaminophen (Tylenol) 650 mg Q6H PRN ORAL Mild Pain (Pain Scale 1-3) 09/22/19 10:30 10/22/19 10:29 Aspirin (ASA) 81 mg DAILY ORAL 09/23/19 09:00 11/07/19 08:59 09/24/19 08:34 Azithromycin (Zithromax) 250 mg Q24H ORAL 09/22/19 21:00 09/26/19 21:01 09/23/19 20:38 Cefepime HCl 1 gm/ Dextrose 55 ml @ 110 mls/hr EVERY 12 HOURS IVPB 09/22/19 15:00 09/29/19 14:59 09/24/19 08:35 Clonidine HCl (Catapres Tab) 0.1 mg Q4H PRN ORAL For High Blood Pressure 09/23/19 00:45 12/22/19 00:44 09/23/19 00:45 Enoxaparin Sodium (Lovenox) 40 mg DAILY SUBQ 09/22/19 09:00 12/21/19 08:59 09/24/19 08:37 Furosemide (Lasix) 20 mg DAILY ORAL 09/22/19 09:00 10/22/19 08:59 09/24/19 08:34 Gabapentin (Neurontin) 300 mg THREE TIMES A DAY ORAL 09/22/19 09:00 10/22/19 08:59 09/24/19 12:17 Guaifenesin/ Dextromethorphan (Robitussin DM Syrup) 15 ml Q6H PRN ORAL For Cough 09/22/19 08:00 12/21/19 07:59 09/22/19 09:10 Lamotrigine (LaMICtal) 100 mg DAILY ORAL 09/22/19 09:00 10/22/19 08:59 09/24/19 08:35 Lamotrigine (LaMICtal) 150 mg BEDTIME ORAL 09/22/19 21:00 10/22/19 20:59 09/23/19 20:38 Metoprolol Tartrate (Lopressor) 50 mg BID ORAL 09/22/19 09:00 12/21/19 08:59 09/24/19 08:34 Olanzapine (ZyPREXA) 10 mg BEDTIME ORAL 09/23/19 21:00 11/06/19 08:59 09/23/19 20:38 Ondansetron HCl (Zofran) 4 mg Q4H PRN IVP Nausea & Vomiting 09/22/19 10:30 10/22/19 10:29 Potassium Chloride (K-Dur) 40 meq DAILY ORAL 09/25/19 09:00 12/24/19 08:59 Kristel Hernandez M.D. September 24, 2019 14:54
[2019-09-24 16:00] VITALS: BP 107/71
[2019-09-24 20:00] VITALS: BP 118/66
[2019-09-24] MEDS: Azithromycin 250mg tab ORAL SCH (20:23)
[2019-09-24] MEDS: LaMICtal 150mg tab ORAL SCH (20:23)
[2019-09-24] MEDS: OLANZapine 10mg tab ORAL SCH (20:23)
[2019-09-25] VITALS: BP 121/70
[2019-09-25 04:00] VITALS: BP 131/79
[2019-09-25 05:22] LABS: HEMATOCRIT 33.7 % (37.0-47.0); HEMOGLOBIN 11.5 G/DL (12.0-16.0); MEAN CORPUSCULAR VOLUME 88 FL (80-99); PLATELET COUNT 195 K/UL (150-450); RED BLOOD COUNT 3.84 M/UL (4.20-5.40); RED CELL DISTRIBUTION WIDTH 12.1 % (11.6-14.8); WHITE BLOOD COUNT 2.3 K/UL (4.8-10.8)
[2019-09-25 05:41] LABS: ANION GAP 10 mmol/L (5-15); BLOOD UREA NITROGEN 8 mg/dL (7-18); CALCIUM 8.5 MG/DL (8.5-10.1); CARBON DIOXIDE 25 MMOL/L (21-32); CHLORIDE 108 MMOL/L (98-107); CREATININE 0.9 MG/DL (0.55-1.30); POTASSIUM 3.8 MMOL/L (3.5-5.1); SODIUM 143 MMOL/L (136-145)
[2019-09-25 08:00] VITALS: BP 153/77
[2019-09-25] MEDS: Cefepime HCl 1 GM in D5W 55 ML IVPB SCH ×2 (10:50→20:26)
[2019-09-25] MEDS: Enoxaparin 40mg Inj SUBQ SCH (10:51)
[2019-09-25] MEDS: Aspirin Baby 81mg ORAL SCH (10:53)
[2019-09-25] MEDS: Metoprolol Tartrate 50mg tab ORAL SCH ×2 (10:54→18:55)
[2019-09-25 12:00] VITALS: BP 143/72
--- NOTE | 2019-09-25 14:51 | Internal Med Progress Note ---
Subjective Date of Service: September 25, 2019 Physician Name PamBlaine Attending Physician Guillermo Vicente MD Current Medications Medications (Trade) Dose Ordered Sig/Shazia Route PRN Reason Start Time Stop Time Status Last Admin Dose Admin Acetaminophen (Tylenol) 650 mg Q6H PRN ORAL Temp >100.5 09/22/19 10:30 10/22/19 10:29 09/24/19 12:17 Acetaminophen (Tylenol) 650 mg Q6H PRN ORAL Mild Pain (Pain Scale 1-3) 09/22/19 10:30 10/22/19 10:29 Aspirin (ASA) 81 mg DAILY ORAL 09/23/19 09:00 11/07/19 08:59 09/25/19 10:53 Azithromycin (Zithromax) 250 mg Q24H ORAL 09/22/19 21:00 09/26/19 21:01 09/24/19 20:23 Cefepime HCl 1 gm/ Dextrose 55 ml @ 110 mls/hr EVERY 12 HOURS IVPB 09/22/19 15:00 09/29/19 14:59 09/25/19 10:50 Clonidine HCl (Catapres Tab) 0.1 mg Q4H PRN ORAL For High Blood Pressure 09/23/19 00:45 12/22/19 00:44 09/23/19 00:45 Enoxaparin Sodium (Lovenox) 40 mg DAILY SUBQ 09/22/19 09:00 12/21/19 08:59 09/25/19 10:51 Furosemide (Lasix) 20 mg DAILY ORAL 09/22/19 09:00 10/22/19 08:59 09/25/19 10:53 Gabapentin (Neurontin) 300 mg THREE TIMES A DAY ORAL 09/22/19 09:00 10/22/19 08:59 09/25/19 13:41 Guaifenesin/ Dextromethorphan (Robitussin DM Syrup) 15 ml Q6H PRN ORAL For Cough 09/22/19 08:00 12/21/19 07:59 09/22/19 09:10 Lamotrigine (LaMICtal) 100 mg DAILY ORAL 09/22/19 09:00 10/22/19 08:59 09/25/19 10:51 Lamotrigine (LaMICtal) 150 mg BEDTIME ORAL 09/22/19 21:00 10/22/19 20:59 09/24/19 20:23 Metoprolol Tartrate (Lopressor) 50 mg BID ORAL 09/22/19 09:00 12/21/19 08:59 09/25/19 10:54 Olanzapine (ZyPREXA) 10 mg BEDTIME ORAL 09/23/19 21:00 11/06/19 08:59 09/24/19 20:23 Ondansetron HCl (Zofran) 4 mg Q4H PRN IVP Nausea & Vomiting 09/22/19 10:30 10/22/19 10:29 Potassium Chloride (K-Dur) 40 meq DAILY ORAL 09/25/19 09:00 12/24/19 08:59 09/25/19 10:53 Allergies: Coded Allergies: CODEINE (Verified Allergy, Unknown, 12/01/18) IBUPROFEN (Verified Allergy, Unknown, 12/01/18) ROS Limited/Unobtainable: No Constitutional: Reports: no symptoms HEENT: Reports: no symptoms Cardiovascular: Reports: no symptoms Respiratory: Reports: no symptoms Gastrointestinal/Abdominal: Reports: no symptoms Genitourinary: Reports: no symptoms Neurologic/Psychiatric: Reports: no symptoms Subjective 64 YO F admitted with fever and cough. Cover for Int Med-Dr Vicente. Afebrile for 24 hours Objective Last Vital Signs Date Time Temp Pulse Resp B/P (MAP) Pulse Ox O2 Delivery O2 Flow Rate FiO2 09/25/19 12:00 99.0 81 18 143/72 (95) 94 09/25/19 09:00 Room Air Laboratory Tests Test 09/25/19 04:30 White Blood Count 2.3 K/UL (4.8-10.8) L Red Blood Count 3.84 M/UL (4.20-5.40) L Hemoglobin 11.5 G/DL (12.0-16.0) L Hematocrit 33.7 % (37.0-47.0) L Mean Corpuscular Volume 88 FL (80-99) Mean Corpuscular Hemoglobin 30.0 PG (27.0-31.0) Mean Corpuscular Hemoglobin Concent 34.2 G/DL (32.0-36.0) Red Cell Distribution Width 12.1 % (11.6-14.8) Platelet Count 195 K/UL (150-450) Mean Platelet Volume 5.0 FL (6.5-10.1) L Neutrophils (%) (Auto) % (45.0-75.0) Lymphocytes (%) (Auto) % (20.0-45.0) Monocytes (%) (Auto) % (1.0-10.0) Eosinophils (%) (Auto) % (0.0-3.0) Basophils (%) (Auto) % (0.0-2.0) Differential Total Cells Counted 100 Neutrophils % (Manual) 38 % (45-75) L Lymphocytes % (Manual) 46 % (20-45) H Monocytes % (Manual) 13 % (1-10) H Eosinophils % (Manual) 1 % (0-3) Basophils % (Manual) 2 % (0-2) Band Neutrophils 0 % (0-8) Platelet Estimate Adequate Platelet Morphology Normal Anisocytosis 1+ Sodium Level 143 MMOL/L (136-145) Potassium Level 3.8 MMOL/L (3.5-5.1) Chloride Level 108 MMOL/L (98-107) H Carbon Dioxide Level 25 MMOL/L (21-32) Anion Gap 10 mmol/L (5-15) Blood Urea Nitrogen 8 mg/dL (7-18) Creatinine 0.9 MG/DL (0.55-1.30) Estimat Glomerular Filtration Rate > 60 mL/min (>60) Glucose Level 102 MG/DL (74-106) Calcium Level 8.5 MG/DL (8.5-10.1) Intake and Output 09/24/19 09/25/19 19:00 07:00 Intake Total 710 ml 460 ml Balance 710 ml 460 ml Intake Oral 600 ml 350 ml IV Total 110 ml 110 ml # Voids 3 2 # Bowel Movements 1 Objective PHYSICAL EXAMINATION: GENERAL: Patient is well-developed, well-nourished female, in no apparent distress. HEENT: Eyes, pupils are equal and responsive to light and accommodation. Extraocular movements are intact. NECK: Supple without lymphadenopathy. CHEST: Lungs are clear to auscultation bilaterally without wheezes or rales. CARDIOVASCULAR: Regular rhythm and rate. S1, S2 are normal without murmurs, rubs, or gallops. ABDOMEN: Soft, nontender, nondistended. Positive bowel sounds. No evidence of hepatosplenomegaly. Currently, no rebound or guarding noted. EXTREMITIES: Negative for clubbing, cyanosis, or edema. RECTAL/GENITAL: Not performed. NEUROLOGIC: Cranial nerves II through XII are grossly intact without focal deficits. Motor strength is 5/5 bilaterally. Deep tendon reflexes are 2+ plantar. Assessment/Plan Assessment/Plan ASSESSMENT: This is a 64-year-old female. 1. Fever. 2. Cough. 3. Urinary tract infection. 4. Hypertension. 5. Paranoid schizophrenia. 6. Migraine headache. 7. Carotid stenosis. TREATMENT: 1. Fever/cough. COVID-19 is highly suspicious secondary to elevated temperature and cough. A COVID-19 swab is pending. We will follow recommendations of Infectious Disease, Dr. Hernandez. 2. Urinary tract infection. Urine culture = mixed. Patient has been started empirically on intravenous cefepime and azithromycin. We will follow recommendations of Infectious Disease. A Pulmonary consultation has been obtained with Dr. Helene Olmedo. 3. Hypertension. Continue metoprolol and Lasix as above. 4. Migraine headache. 5. Left carotid stenosis. 6. Paranoid schizophrenia. Continue Zyprexa as above. 7. DVT prophylaxis=Lovenox 8. Full code Blaine Orozco MD September 25, 2019 14:51
[2019-09-25 16:00] VITALS: BP 133/72
[2019-09-25 20:00] VITALS: BP_SYST 131; BP_SYST 133; BP_DIAS 67; BP_DIAS 77
[2019-09-25] MEDS: Azithromycin 250mg tab ORAL SCH (20:26)
[2019-09-25] MEDS: LaMICtal 150mg tab ORAL SCH (20:26)
[2019-09-25] MEDS: OLANZapine 10mg tab ORAL SCH (20:26)
[2019-09-26] VITALS (7 sets, daily range): BP systolic 117–165; BP diastolic 59–92
[2019-09-26] MEDS: Guaifenesin/DM 10ml syrup ORAL PRN (04:22)
[2019-09-26 05:56] LABS: HEMATOCRIT 33.1 % (37.0-47.0); HEMOGLOBIN 11.5 G/DL (12.0-16.0); MEAN CORPUSCULAR VOLUME 89 FL (80-99); PLATELET COUNT 226 K/UL (150-450); RED BLOOD COUNT 3.72 M/UL (4.20-5.40); WHITE BLOOD COUNT 2.8 K/UL (4.8-10.8)
[2019-09-26 06:19] LABS: ANION GAP 10 mmol/L (5-15); BLOOD UREA NITROGEN 7 mg/dL (7-18); CALCIUM 8.7 MG/DL (8.5-10.1); CARBON DIOXIDE 26 MMOL/L (21-32); CHLORIDE 106 MMOL/L (98-107); CREATININE 0.7 MG/DL (0.55-1.30); POTASSIUM 4.3 MMOL/L (3.5-5.1); SODIUM 142 MMOL/L (136-145)
[2019-09-26] MEDS: Aspirin Baby 81mg ORAL SCH (09:04)
[2019-09-26] MEDS: Enoxaparin 40mg Inj SUBQ SCH (09:04)
[2019-09-26] MEDS: Cefepime HCl 1 GM in D5W 55 ML IVPB SCH (09:04)
[2019-09-26] MEDS: Metoprolol Tartrate 50mg tab ORAL SCH ×2 (09:05→17:49)
--- NOTE | 2019-09-26 14:07 | Internal Med Progress Note ---
Subjective Date of Service: September 26, 2019 Physician Name PamBlaine Attending Physician Guillermo Vicente MD Current Medications Medications (Trade) Dose Ordered Sig/Shazia Route PRN Reason Start Time Stop Time Status Last Admin Dose Admin Acetaminophen (Tylenol) 650 mg Q6H PRN ORAL Temp >100.5 09/22/19 10:30 10/22/19 10:29 09/24/19 12:17 Acetaminophen (Tylenol) 650 mg Q6H PRN ORAL Mild Pain (Pain Scale 1-3) 09/22/19 10:30 10/22/19 10:29 Aspirin (ASA) 81 mg DAILY ORAL 09/23/19 09:00 11/07/19 08:59 09/26/19 09:04 Azithromycin (Zithromax) 250 mg Q24H ORAL 09/22/19 21:00 09/26/19 21:01 09/25/19 20:26 Cefepime HCl 1 gm/ Dextrose 55 ml @ 110 mls/hr EVERY 12 HOURS IVPB 09/22/19 15:00 09/29/19 14:59 09/26/19 09:04 Clonidine HCl (Catapres Tab) 0.1 mg Q4H PRN ORAL For High Blood Pressure 09/23/19 00:45 12/22/19 00:44 09/23/19 00:45 Enoxaparin Sodium (Lovenox) 40 mg DAILY SUBQ 09/22/19 09:00 12/21/19 08:59 09/26/19 09:04 Furosemide (Lasix) 20 mg DAILY ORAL 09/22/19 09:00 10/22/19 08:59 09/26/19 09:04 Gabapentin (Neurontin) 300 mg THREE TIMES A DAY ORAL 09/22/19 09:00 10/22/19 08:59 09/26/19 12:52 Guaifenesin/ Dextromethorphan (Robitussin DM Syrup) 15 ml Q6H PRN ORAL For Cough 09/22/19 08:00 12/21/19 07:59 09/26/19 04:22 Lamotrigine (LaMICtal) 100 mg DAILY ORAL 09/22/19 09:00 10/22/19 08:59 09/26/19 09:05 Lamotrigine (LaMICtal) 150 mg BEDTIME ORAL 09/22/19 21:00 10/22/19 20:59 09/25/19 20:26 Metoprolol Tartrate (Lopressor) 50 mg BID ORAL 09/22/19 09:00 12/21/19 08:59 09/26/19 09:05 Olanzapine (ZyPREXA) 10 mg BEDTIME ORAL 09/23/19 21:00 11/06/19 08:59 09/25/19 20:26 Ondansetron HCl (Zofran) 4 mg Q4H PRN IVP Nausea & Vomiting 09/22/19 10:30 10/22/19 10:29 Potassium Chloride (K-Dur) 40 meq DAILY ORAL 09/25/19 09:00 12/24/19 08:59 09/26/19 09:04 Allergies: Coded Allergies: CODEINE (Verified Allergy, Unknown, 12/01/18) IBUPROFEN (Verified Allergy, Unknown, 12/01/18) ROS Limited/Unobtainable: No Constitutional: Reports: no symptoms HEENT: Reports: no symptoms Cardiovascular: Reports: no symptoms Respiratory: Reports: no symptoms Gastrointestinal/Abdominal: Reports: no symptoms Genitourinary: Reports: no symptoms Neurologic/Psychiatric: Reports: no symptoms Subjective 64 YO F admitted with fever and cough. Now COVID 19 positive. Cover for Int Med-Dr Vicente. Objective Last Vital Signs Date Time Temp Pulse Resp B/P (MAP) Pulse Ox O2 Delivery O2 Flow Rate FiO2 09/26/19 12:00 100.4 72 19 129/66 (87) 96 09/26/19 09:00 Room Air Laboratory Tests Test 09/26/19 04:40 White Blood Count 2.8 K/UL (4.8-10.8) L Red Blood Count 3.72 M/UL (4.20-5.40) L Hemoglobin 11.5 G/DL (12.0-16.0) L Hematocrit 33.1 % (37.0-47.0) L Mean Corpuscular Volume 89 FL (80-99) Mean Corpuscular Hemoglobin 30.9 PG (27.0-31.0) Mean Corpuscular Hemoglobin Concent 34.6 G/DL (32.0-36.0) Red Cell Distribution Width 12.0 % (11.6-14.8) Platelet Count 226 K/UL (150-450) Mean Platelet Volume 5.1 FL (6.5-10.1) L Neutrophils (%) (Auto) % (45.0-75.0) Lymphocytes (%) (Auto) % (20.0-45.0) Monocytes (%) (Auto) % (1.0-10.0) Eosinophils (%) (Auto) % (0.0-3.0) Basophils (%) (Auto) % (0.0-2.0) Differential Total Cells Counted 100 Neutrophils % (Manual) 52 % (45-75) Lymphocytes % (Manual) 34 % (20-45) Monocytes % (Manual) 14 % (1-10) H Eosinophils % (Manual) 0 % (0-3) Basophils % (Manual) 0 % (0-2) Band Neutrophils 0 % (0-8) Platelet Estimate Adequate Platelet Morphology Normal Hypochromasia 1+ Sodium Level 142 MMOL/L (136-145) Potassium Level 4.3 MMOL/L (3.5-5.1) Chloride Level 106 MMOL/L (98-107) Carbon Dioxide Level 26 MMOL/L (21-32) Anion Gap 10 mmol/L (5-15) Blood Urea Nitrogen 7 mg/dL (7-18) Creatinine 0.7 MG/DL (0.55-1.30) Estimat Glomerular Filtration Rate > 60 mL/min (>60) Glucose Level 106 MG/DL (74-106) Calcium Level 8.7 MG/DL (8.5-10.1) Intake and Output 09/25/19 09/26/19 19:00 07:00 Intake Total 300 ml 760 ml Balance 300 ml 760 ml Intake Oral 300 ml 650 ml IV Total 110 ml # Voids 2 3 Objective PHYSICAL EXAMINATION: GENERAL: Patient is well-developed, well-nourished female, in no apparent distress. HEENT: Eyes, pupils are equal and responsive to light and accommodation. Extraocular movements are intact. NECK: Supple without lymphadenopathy. CHEST: Lungs are clear to auscultation bilaterally without wheezes or rales. CARDIOVASCULAR: Regular rhythm and rate. S1, S2 are normal without murmurs, rubs, or gallops. ABDOMEN: Soft, nontender, nondistended. Positive bowel sounds. No evidence of hepatosplenomegaly. Currently, no rebound or guarding noted. EXTREMITIES: Negative for clubbing, cyanosis, or edema. RECTAL/GENITAL: Not performed. NEUROLOGIC: Cranial nerves II through XII are grossly intact without focal deficits. Motor strength is 5/5 bilaterally. Deep tendon reflexes are 2+ plantar. Assessment/Plan Assessment/Plan ASSESSMENT: This is a 64-year-old female. 1. Fever. 2. Cough. 3. Urinary tract infection. 4. Hypertension. 5. Paranoid schizophrenia. 6. Migraine headache. 7. Carotid stenosis. 8. COVID 19 positive TREATMENT: 1. COVID 19 positive. We will follow recommendations of Infectious Disease, Dr. Hernandez. 2. Urinary tract infection. Urine culture = mixed. Patient has been ABX=cefepime and azithromycin. We will follow recommendations of Infectious Disease. A Pulmonary consultation has been obtained with Dr. Helene Olmedo. 3. Hypertension. Continue metoprolol and Lasix as above. 4. Migraine headache. 5. Left carotid stenosis. 6. Paranoid schizophrenia. Continue Zyprexa as above. 7. DVT prophylaxis=Lovenox 8. Full code Blaine Orozco MD September 26, 2019 14:07
--- NOTE | 2019-09-26 14:34 | Infectious Diseases Prog Note ---
Assessment/Plan Assessment/Plan Assessment: Sepsis PNA-2ry to COVID19- currently at [facility] -09/22 CXR: Right basilar infiltrates unchanged. -09/20 CXR: Vascular and interstitial prominence perhaps early edema. SARS-COV2 PCR + Fever, persistent Mild leukopenia/Lymphopenia -09/20 Bcx NTD -u/a wbc 10-15, nit neg, leuk +3; ucx mixed gram positive growth schizophrenia HTN [place] resident ([facility]) Plan: -Dc empiric Cefepime #5 (abxd #6) and monitor off abx -Will consider for Remdesivir if SpO2< or equal 94% on RA with evidence or clinical worsening or requiring supplemetnal O2 -09/24 SP Azithromycin #5 -09/21 SP Ceftriaxone #2 -f/u cx -Monitor CBC/CMP, temperatures -COVID19 isolation -CXR am Thank you for consulting [facility]. Will continue to follow along with you. Discussed with RN, Subjective Allergies: Coded Allergies: CODEINE (Verified Allergy, Unknown, 12/01/18) IBUPROFEN (Verified Allergy, Unknown, 12/01/18) Subjective Covid positive Tm 100.4, at Bcx NTD Objective Vital Signs Last 24 Hour Vital Signs Date Time Temp Pulse Resp B/P (MAP) Pulse Ox O2 Delivery O2 Flow Rate FiO2 09/26/19 12:00 100.4 72 19 129/66 (87) 96 09/26/19 09:05 83 156/92 09/26/19 09:00 Room Air 09/26/19 08:00 99.9 83 19 156/92 (113) 92 09/26/19 04:00 98.7 81 18 133/74 (93) 95 09/26/19 00:00 99.0 72 20 142/78 (99) 94 09/25/19 21:00 Room Air 09/25/19 20:00 99.0 76 18 131/77 (95) 94 09/25/19 18:55 71 133/72 09/25/19 16:00 98.2 71 18 133/72 (92) 95 Height (Feet): 5 Height (Inches): 5.00 Weight (Pounds): 160 Objective not examined to limit COVID19 exposure Laboratory Tests Test 09/26/19 04:40 White Blood Count 2.8 K/UL (4.8-10.8) L Red Blood Count 3.72 M/UL (4.20-5.40) L Hemoglobin 11.5 G/DL (12.0-16.0) L Hematocrit 33.1 % (37.0-47.0) L Mean Corpuscular Volume 89 FL (80-99) Mean Corpuscular Hemoglobin 30.9 PG (27.0-31.0) Mean Corpuscular Hemoglobin Concent 34.6 G/DL (32.0-36.0) Red Cell Distribution Width 12.0 % (11.6-14.8) Platelet Count 226 K/UL (150-450) Mean Platelet Volume 5.1 FL (6.5-10.1) L Neutrophils (%) (Auto) % (45.0-75.0) Lymphocytes (%) (Auto) % (20.0-45.0) Monocytes (%) (Auto) % (1.0-10.0) Eosinophils (%) (Auto) % (0.0-3.0) Basophils (%) (Auto) % (0.0-2.0) Differential Total Cells Counted 100 Neutrophils % (Manual) 52 % (45-75) Lymphocytes % (Manual) 34 % (20-45) Monocytes % (Manual) 14 % (1-10) H Eosinophils % (Manual) 0 % (0-3) Basophils % (Manual) 0 % (0-2) Band Neutrophils 0 % (0-8) Platelet Estimate Adequate Platelet Morphology Normal Hypochromasia 1+ Sodium Level 142 MMOL/L (136-145) Potassium Level 4.3 MMOL/L (3.5-5.1) Chloride Level 106 MMOL/L (98-107) Carbon Dioxide Level 26 MMOL/L (21-32) Anion Gap 10 mmol/L (5-15) Blood Urea Nitrogen 7 mg/dL (7-18) Creatinine 0.7 MG/DL (0.55-1.30) Estimat Glomerular Filtration Rate > 60 mL/min (>60) Glucose Level 106 MG/DL (74-106) Calcium Level 8.7 MG/DL (8.5-10.1) Current Medications Medications (Trade) Dose Ordered Sig/Shazia Route PRN Reason Start Time Stop Time Status Last Admin Dose Admin Acetaminophen (Tylenol) 650 mg Q6H PRN ORAL Temp >100.5 5/21/20 10:30 10/22/19 10:29 09/24/19 12:17 Acetaminophen (Tylenol) 650 mg Q6H PRN ORAL Mild Pain (Pain Scale 1-3) 09/22/19 10:30 10/22/19 10:29 Aspirin (ASA) 81 mg DAILY ORAL 09/23/19 09:00 11/07/19 08:59 09/26/19 09:04 Azithromycin (Zithromax) 250 mg Q24H ORAL 09/22/19 21:00 09/26/19 21:01 09/25/19 20:26 Cefepime HCl 1 gm/ Dextrose 55 ml @ 110 mls/hr EVERY 12 HOURS IVPB 09/22/19 15:00 09/29/19 14:59 09/26/19 09:04 Clonidine HCl (Catapres Tab) 0.1 mg Q4H PRN ORAL For High Blood Pressure 09/23/19 00:45 12/22/19 00:44 09/23/19 00:45 Enoxaparin Sodium (Lovenox) 40 mg DAILY SUBQ 09/22/19 09:00 12/21/19 08:59 09/26/19 09:04 Furosemide (Lasix) 20 mg DAILY ORAL 09/22/19 09:00 10/22/19 08:59 09/26/19 09:04 Gabapentin (Neurontin) 300 mg THREE TIMES A DAY ORAL 09/22/19 09:00 10/22/19 08:59 09/26/19 12:52 Guaifenesin/ Dextromethorphan (Robitussin DM Syrup) 15 ml Q6H PRN ORAL For Cough 09/22/19 08:00 12/21/19 07:59 09/26/19 04:22 Lamotrigine (LaMICtal) 100 mg DAILY ORAL 09/22/19 09:00 10/22/19 08:59 09/26/19 09:05 Lamotrigine (LaMICtal) 150 mg BEDTIME ORAL 09/22/19 21:00 10/22/19 20:59 09/25/19 20:26 Metoprolol Tartrate (Lopressor) 50 mg BID ORAL 09/22/19 09:00 12/21/19 08:59 09/26/19 09:05 Olanzapine (ZyPREXA) 10 mg BEDTIME ORAL 09/23/19 21:00 11/06/19 08:59 09/25/19 20:26 Ondansetron HCl (Zofran) 4 mg Q4H PRN IVP Nausea & Vomiting 09/22/19 10:30 10/22/19 10:29 Potassium Chloride (K-Dur) 40 meq DAILY ORAL 09/25/19 09:00 12/24/19 08:59 09/26/19 09:04 Kristel Hernandez M.D. September 26, 2019 14:34
[2019-09-26] MEDS: OLANZapine 10mg tab ORAL SCH (22:23)
[2019-09-26] MEDS: LaMICtal 150mg tab ORAL SCH (22:23)
[2019-09-27] VITALS: BP 148/76
[2019-09-27 04:00] VITALS: BP 151/88
[2019-09-27 06:48] LABS: HEMATOCRIT 32.2 % (37.0-47.0); HEMOGLOBIN 10.9 G/DL (12.0-16.0); MEAN CORPUSCULAR VOLUME 89 FL (80-99); PLATELET COUNT 268 K/UL (150-450); RED CELL DISTRIBUTION WIDTH 12.1 % (11.6-14.8); WHITE BLOOD COUNT 2.6 K/UL (4.8-10.8)
[2019-09-27 07:29] LABS: ANION GAP 10 mmol/L (5-15); BLOOD UREA NITROGEN 8 mg/dL (7-18); CALCIUM 8.7 MG/DL (8.5-10.1); CARBON DIOXIDE 27 MMOL/L (21-32); CHLORIDE 103 MMOL/L (98-107); CREATININE 0.9 MG/DL (0.55-1.30); FERRITIN 481 NG/ML (8-388); POTASSIUM 3.6 MMOL/L (3.5-5.1); SODIUM 140 MMOL/L (136-145)
[2019-09-27 08:00] VITALS: BP 153/91
[2019-09-27] MEDS: Aspirin Baby 81mg ORAL SCH (09:07)
[2019-09-27] MEDS: Metoprolol Tartrate 50mg tab ORAL SCH ×2 (09:07→18:13)
[2019-09-27] MEDS: Enoxaparin 40mg Inj SUBQ SCH (09:09)
--- NOTE | 2019-09-27 09:45 | Diagnostic Imaging Report ---
Indication: Cough Technique: One view of the chest Comparison: 09/23/2019 Findings: Patient is rotated to the right. Right mid and lower lung infiltrates appears slightly increased from the prior exam. There is suggestion of a small right pleural effusion. Left lung and pleural space remain clear. The heart remains borderline enlarged. There is evidence of old posttraumatic deformity of the left shoulder Impression: Increasing right lung consolidation, likely pneumonia Suspect trace right pleural effusion
--- NOTE | 2019-09-27 11:31 | Diagnostic Imaging Report ---
EXAM: US Chest CLINICAL HISTORY: rule out pleural effusion right chest TECHNIQUE: Real-time ultrasound of the right chest with image documentation. COMPARISON: No relevant prior studies available. FINDINGS: Pleural space: No right pleural effusion seen. Soft tissues: Unremarkable. No mass or fluid collection. Lymph nodes: Unremarkable. No lymphadenopathy. IMPRESSION: No right pleural effusion seen.
[2019-09-27 12:00] VITALS: BP 156/92
--- NOTE | 2019-09-27 13:33 | Pulmonology Progress Note ---
Subjective ROS Limited/Unobtainable: No Interval Events: has episodes of shaking Allergies: Coded Allergies: CODEINE (Verified Allergy, Unknown, 12/01/18) IBUPROFEN (Verified Allergy, Unknown, 12/01/18) Objective Last 24 Hour Vital Signs Date Time Temp Pulse Resp B/P (MAP) Pulse Ox O2 Delivery O2 Flow Rate FiO2 09/27/19 12:00 99.5 93 20 156/92 (113) 93 09/27/19 09:07 81 153/91 09/27/19 09:00 Room Air 09/27/19 08:00 99.0 81 21 153/91 (111) 92 09/27/19 04:00 99.0 78 22 151/88 (109) 93 09/27/19 00:00 99.9 78 22 148/76 (100) 90 09/26/19 21:00 Room Air 09/26/19 20:00 96.5 73 22 117/72 (87) 92 09/26/19 17:49 80 110/53 09/26/19 16:47 99.7 09/26/19 16:47 99.7 78 128/74 (92) 09/26/19 16:17 165/82 09/26/19 16:00 101.7 78 19 165/82 (109) 92 Intake and Output 09/26/19 09/27/19 18:59 06:59 Intake Total 348 ml 300 ml Output Total 275 ml 400 ml Balance 73 ml -100 ml Intake Oral 348 ml 300 ml Output Urine Total 275 ml 400 ml # Voids 1 General Appearance: WD/WN HEENT: normocephalic, atraumatic Respiratory: chest wall non-tender, lungs clear Breasts: no masses Cardiovascular: normal peripheral pulses Abdomen: normal bowel sounds, soft, non tender, no scars Extremities: no cyanosis Laboratory Tests 09/27/19 06:15: White Blood Count 2.6L, Red Blood Count 3.60L, Hemoglobin 10.9L, Hematocrit 32.2L, Mean Corpuscular Volume 89, Mean Corpuscular Hemoglobin 30.3, Mean Corpuscular Hemoglobin Concent 33.9, Red Cell Distribution Width 12.1, Platelet Count 268, Mean Platelet Volume 4.7L, Neutrophils (%) (Auto) , Lymphocytes (%) ( Auto) , Monocytes (%) (Auto) , Eosinophils (%) (Auto) , Basophils (%) (Auto) , Differential Total Cells Counted 100, Neutrophils % (Manual) 51, Lymphocytes % ( Manual) 37, Monocytes % (Manual) 12H, Eosinophils % (Manual) 0, Basophils % ( Manual) 0, Band Neutrophils 0, Platelet Estimate Adequate, Platelet Morphology Normal, Hypochromasia 1+, Fibrinogen 512H, D-Dimer 0.70H, Sodium Level 140, Potassium Level 3.6, Chloride Level 103, Carbon Dioxide Level 27, Anion Gap 10, Blood Urea Nitrogen 8, Creatinine 0.9, Estimat Glomerular Filtration Rate > 60, Glucose Level 118H, Calcium Level 8.7, Ferritin 481H, C-Reactive Protein, Quantitative 11.8H Current Medications Medications (Trade) Dose Ordered Sig/Shazia Route PRN Reason Start Time Stop Time Status Last Admin Dose Admin Acetaminophen (Tylenol) 650 mg Q6H PRN ORAL Temp >100.5 09/22/19 10:30 10/22/19 10:29 09/26/19 16:17 Acetaminophen (Tylenol) 650 mg Q6H PRN ORAL Mild Pain (Pain Scale 1-3) 09/22/19 10:30 10/22/19 10:29 Aspirin (ASA) 81 mg DAILY ORAL 09/23/19 09:00 11/07/19 08:59 09/27/19 09:07 Clonidine HCl (Catapres Tab) 0.1 mg Q4H PRN ORAL For High Blood Pressure 09/23/19 00:45 12/22/19 00:44 09/26/19 16:17 Enoxaparin Sodium (Lovenox) 40 mg DAILY SUBQ 09/22/19 09:00 12/21/19 08:59 09/27/19 09:09 Furosemide (Lasix) 20 mg DAILY ORAL 09/22/19 09:00 10/22/19 08:59 09/27/19 09:09 Gabapentin (Neurontin) 300 mg THREE TIMES A DAY ORAL 09/22/19 09:00 10/22/19 08:59 09/27/19 12:43 Guaifenesin/ Dextromethorphan (Robitussin DM Syrup) 15 ml Q6H PRN ORAL For Cough 09/22/19 08:00 12/21/19 07:59 09/26/19 04:22 Lamotrigine (LaMICtal) 100 mg DAILY ORAL 09/22/19 09:00 10/22/19 08:59 09/27/19 09:09 Lamotrigine (LaMICtal) 150 mg BEDTIME ORAL 09/22/19 21:00 10/22/19 20:59 09/26/19 22:23 Metoprolol Tartrate (Lopressor) 50 mg BID ORAL 09/22/19 09:00 12/21/19 08:59 09/27/19 09:07 Olanzapine (ZyPREXA) 10 mg BEDTIME ORAL 09/23/19 21:00 11/06/19 08:59 09/26/19 22:23 Ondansetron HCl (Zofran) 4 mg Q4H PRN IVP Nausea & Vomiting 09/22/19 10:30 10/22/19 10:29 09/27/19 13:08 Potassium Chloride (K-Dur) 40 meq DAILY ORAL 09/25/19 09:00 12/24/19 08:59 09/27/19 09:10 Assessment/Plan Problems: (1) RLL pneumonia (2) Fever (3) Pleural effusion (4) Suspected COVID-19 virus infection (5) Hypertension (6) Paranoid schizophrenia (7) alf resident Assessment/Plan still febrile respiratory treatment check cultures iv abx ID f/u monitor HTN. cxr reviewed today, worsening of right infiltrate Helene Olmedo MD September 27, 2019 13:33
[2019-09-27 16:00] VITALS: BP 131/88
--- NOTE | 2019-09-27 16:21 | Internal Med Progress Note ---
Subjective Date of Service: September 27, 2019 Physician Name Orozco,Blaine Attending Physician Guillermo Vicente MD Current Medications Medications (Trade) Dose Ordered Sig/Shazia Route PRN Reason Start Time Stop Time Status Last Admin Dose Admin Acetaminophen (Tylenol) 650 mg Q6H PRN ORAL Temp >100.5 09/22/19 10:30 10/22/19 10:29 09/26/19 16:17 Acetaminophen (Tylenol) 650 mg Q6H PRN ORAL Mild Pain (Pain Scale 1-3) 09/22/19 10:30 10/22/19 10:29 Aspirin (ASA) 81 mg DAILY ORAL 09/23/19 09:00 11/07/19 08:59 09/27/19 09:07 Clonidine HCl (Catapres Tab) 0.1 mg Q4H PRN ORAL For High Blood Pressure 09/23/19 00:45 12/22/19 00:44 09/26/19 16:17 Enoxaparin Sodium (Lovenox) 40 mg DAILY SUBQ 09/22/19 09:00 12/21/19 08:59 09/27/19 09:09 Furosemide (Lasix) 20 mg DAILY ORAL 09/22/19 09:00 10/22/19 08:59 09/27/19 09:09 Gabapentin (Neurontin) 300 mg THREE TIMES A DAY ORAL 09/22/19 09:00 10/22/19 08:59 09/27/19 12:43 Guaifenesin/ Dextromethorphan (Robitussin DM Syrup) 15 ml Q6H PRN ORAL For Cough 09/22/19 08:00 12/21/19 07:59 09/26/19 04:22 Lamotrigine (LaMICtal) 100 mg DAILY ORAL 09/22/19 09:00 10/22/19 08:59 09/27/19 09:09 Lamotrigine (LaMICtal) 150 mg BEDTIME ORAL 09/22/19 21:00 10/22/19 20:59 09/26/19 22:23 Metoprolol Tartrate (Lopressor) 50 mg BID ORAL 09/22/19 09:00 12/21/19 08:59 09/27/19 09:07 Olanzapine (ZyPREXA) 10 mg BEDTIME ORAL 09/23/19 21:00 11/06/19 08:59 09/26/19 22:23 Ondansetron HCl (Zofran) 4 mg Q4H PRN IVP Nausea & Vomiting 09/22/19 10:30 10/22/19 10:29 09/27/19 13:08 Potassium Chloride (K-Dur) 40 meq DAILY ORAL 09/25/19 09:00 12/24/19 08:59 09/27/19 09:10 Allergies: Coded Allergies: CODEINE (Verified Allergy, Unknown, 12/01/18) IBUPROFEN (Verified Allergy, Unknown, 12/01/18) ROS Limited/Unobtainable: No Constitutional: Reports: no symptoms HEENT: Reports: no symptoms Cardiovascular: Reports: no symptoms Respiratory: Reports: no symptoms Gastrointestinal/Abdominal: Reports: no symptoms Genitourinary: Reports: no symptoms Neurologic/Psychiatric: Reports: no symptoms Subjective 64 YO F admitted with fever and cough. Now COVID 19 positive. Cover for Int [facility]-Dr Vicente. Objective Last Vital Signs Date Time Temp Pulse Resp B/P (MAP) Pulse Ox O2 Delivery O2 Flow Rate FiO2 09/27/19 12:00 99.5 93 20 156/92 (113) 93 09/27/19 09:00 Room Air Laboratory Tests Test 09/27/19 06:15 White Blood Count 2.6 K/UL (4.8-10.8) L Red Blood Count 3.60 M/UL (4.20-5.40) L Hemoglobin 10.9 G/DL (12.0-16.0) L Hematocrit 32.2 % (37.0-47.0) L Mean Corpuscular Volume 89 FL (80-99) Mean Corpuscular Hemoglobin 30.3 PG (27.0-31.0) Mean Corpuscular Hemoglobin Concent 33.9 G/DL (32.0-36.0) Red Cell Distribution Width 12.1 % (11.6-14.8) Platelet Count 268 K/UL (150-450) Mean Platelet Volume 4.7 FL (6.5-10.1) L Neutrophils (%) (Auto) % (45.0-75.0) Lymphocytes (%) (Auto) % (20.0-45.0) Monocytes (%) (Auto) % (1.0-10.0) Eosinophils (%) (Auto) % (0.0-3.0) Basophils (%) (Auto) % (0.0-2.0) Differential Total Cells Counted 100 Neutrophils % (Manual) 51 % (45-75) Lymphocytes % (Manual) 37 % (20-45) Monocytes % (Manual) 12 % (1-10) H Eosinophils % (Manual) 0 % (0-3) Basophils % (Manual) 0 % (0-2) Band Neutrophils 0 % (0-8) Platelet Estimate Adequate Platelet Morphology Normal Hypochromasia 1+ Fibrinogen 512 mg/dL (200-400) H D-Dimer 0.70 mg/L FEU (0.00-0.49) H Sodium Level 140 MMOL/L (136-145) Potassium Level 3.6 MMOL/L (3.5-5.1) Chloride Level 103 MMOL/L (98-107) Carbon Dioxide Level 27 MMOL/L (21-32) Anion Gap 10 mmol/L (5-15) Blood Urea Nitrogen 8 mg/dL (7-18) Creatinine 0.9 MG/DL (0.55-1.30) Estimat Glomerular Filtration Rate > 60 mL/min (>60) Glucose Level 118 MG/DL (74-106) H Calcium Level 8.7 MG/DL (8.5-10.1) Ferritin 481 NG/ML (8-388) H C-Reactive Protein, Quantitative 11.8 mg/dL (0.00-0.90) H Intake and Output 09/26/19 09/27/19 19:00 07:00 Intake Total 348 ml 300 ml Output Total 275 ml 400 ml Balance 73 ml -100 ml Intake Oral 348 ml 300 ml Output Urine Total 275 ml 400 ml # Voids 1 Objective PHYSICAL EXAMINATION: GENERAL: Patient is well-developed, well-nourished female, in no apparent distress. HEENT: Eyes, pupils are equal and responsive to light and accommodation. Extraocular movements are intact. NECK: Supple without lymphadenopathy. CHEST: Lungs are clear to auscultation bilaterally without wheezes or rales. CARDIOVASCULAR: Regular rhythm and rate. S1, S2 are normal without murmurs, rubs, or gallops. ABDOMEN: Soft, nontender, nondistended. Positive bowel sounds. No evidence of hepatosplenomegaly. Currently, no rebound or guarding noted. EXTREMITIES: Negative for clubbing, cyanosis, or edema. RECTAL/GENITAL: Not performed. NEUROLOGIC: Cranial nerves II through XII are grossly intact without focal deficits. Motor strength is 5/5 bilaterally. Deep tendon reflexes are 2+ plantar. Assessment/Plan Assessment/Plan ASSESSMENT: This is a 64-year-old female. 1. Fever. 2. Cough. 3. Urinary tract infection. 4. Hypertension. 5. Paranoid schizophrenia. 6. Migraine headache. 7. Carotid stenosis. 8. COVID 19 positive TREATMENT: 1. COVID 19 positive. We will follow recommendations of Infectious Disease, Dr. Hernandez. 2. Urinary tract infection. Urine culture = mixed. Patient has been ABX=cefepime and azithromycin. We will follow recommendations of Infectious Disease. A Pulmonary consultation has been obtained with Dr. Helene Olmedo. 3. Hypertension. Continue metoprolol and Lasix as above. 4. Migraine headache. 5. Left carotid stenosis. 6. Paranoid schizophrenia. Continue Zyprexa as above. 7. DVT prophylaxis=Lovenox 8. Full code 9. Transfer to [facility] when bed available. Blaine Orozco MD September 27, 2019 16:21
[2019-09-27 19:45] VITALS: BP 122/70
--- NOTE | 2019-09-29 11:19 | Discharge Summary ---
Discharge Summary Discharge Summary _ DATE OF ADMISSION: 09/22/2019 DATE OF DISCHARGE: 09/27/2019 DISCHARGED BY: Dr. Vicente REASON FOR ADMISSION: 54 years old female with past medical history of hypertension, atrial fibrillation, psychiatric disorder, was [facility] in [facility] the [facility] due to fever. Patient reported productive cough and feeling weak and shaky. No chest pain or shortness of breath. Upon evaluation vital signs revealed fever 103.3, tachycardia, tachypnea , pulse oximetry was stable on room air. EKG revealed sinus tachycardia, no acute ischemic changes. Chest x-ray demonstrated vascular and interstitial prominence . Laboratory work-up revealed no leukocytosis, stable hemoglobin, hematocrit and platelet count. Stable electrolytes and renal parameters Glucose 142. Lactic acid 1.5. LDH 299 , CRP 17.8 , ferritin 147 , lymphopenia noted with lymphocyte percentage 5.9. Urinalysis revealed pyuria and few bacteria, +2 protein. In emergency department patient was swabbed for COVID-19 , pancultured and started on empiric antibiotic. CONSULTANTS: pulmonary Dr. Olmedo ID specialist Dr. Hernandez psychiatrist Dr. Mcclure [facility] COURSE: Patient admitted to isolation room. Patient started on IV antibiotics. Supplemental oxygen provided and titrated to keep pulse oximetry above 92%. Pulmonary toilet provided. Antitussive provided as needed . Patient was followed up with chest x-ray. Ultrasound of the chest revealed no evidence of pleural effusion . Antibiotic provided as per ID specialist recommendation. Blood culture came back negative. SARS COV2 by PCR on 09/21 came back detected. Isolation continued. Urine culture revealed mixed gram-positive organisms. DVT prophylaxis provided. Blood pressure was managed with beta-emmy . Echocardiogram demonstrated preserved ejection fraction of 60% , no evidence of wall motion abnormality. Mild left ventricular hypertrophy. Mild pulmonary hypertension with right ventricular systolic pressure of 44. Volumes were closely monitored . Maintenance dose of Lasix continued. ProBNP 598. Psychiatric medication regimen was optimized as per psychiatrist. Reality orientation and supportive therapy provided. Patient completed antibiotic while in the hospital. Pulse oximetry remained stable on room air. Patient was stable for transfer to [facility] as per insurance for further management. FINAL DIAGNOSES: Sepsis Confirmed COVID-19 infection Pneumonia due to COVID-19 infection Fevers- resolved Hypertension Paranoid schizophrenia Acute encephalopathy Carotid stenosis Migraine headache DISCHARGE MEDICATIONS: See Medication Reconciliation list. DISCHARGE INSTRUCTIONS: Patient was discharged to [facility] due to insurance for continuation of care. I have been assigned to dictate discharge summary for this account. I was not involved in the patient's management. Yelitza Bryant NP September 29, 2019 11:19
== END 2019-09-27 20:40 | disposition short-term general hospital (02) | DRG 720 ==
LOC: EDBD 21:14 → EMR 21:53 → 4E 09-22 00:26 → EDBEDREQ 09-22 00:38
DX: A41.89 Other specified sepsis (principal); U07.1 COVID-19; J12.89 Other viral pneumonia; J90 Pleural effusion, not elsewhere classified; F20.0 Paranoid schizophrenia; N39.0 Urinary tract infection, site not specified; I65.29 Occlusion and stenosis of unspecified carotid artery; Z88.6 Allergy status to analgesic agent; I10 Essential (primary) hypertension; G43.909 Migraine, unspecified, not intractable, without status migrainosus; G93.40 Encephalopathy, unspecified
CPT/HCPCS: 36415; 71045; 76604; 80048; 80053; 81003; 82164; 82308; 82728; 83605; 83615; 83735; 83880; 84100; 84484; 85007; 85025; 85379; 85384; 86140; 87040; 87081; 87086; 87635; 93005; 93306; 96365; 96368; 99285; J2405; J8499